=== PATIENT | male | born 1965 | race Caucasian/White ===

== ENCOUNTER 2017-12-17 20:22 | Emergency (ER) | payer OTHER ==
[2017-12-17] MEDS: ASPIRIN 81 MG CHEW TABLET PO (20:45)
[2017-12-17 20:54] LABS: HEMATOCRIT 43.5 % (42.0-52.0); HEMOGLOBIN 14.6 g/dl (14.0-18.0); MEAN CORPUSCULAR HEMOGLOBIN 29.3 pg (27.0-33.0); MEAN CORPUSCULAR HGB CONC 33.6 g/dl (32.0-36.5); MEAN CORPUSCULAR VOLUME 87.3 fl (80.0-96.0); PLATELET COUNT, AUTOMATED 567 10^3/uL (150-450); RED BLOOD COUNT 4.98 10^6/uL (4.30-6.10); RED CELL DISTRIBUTION WIDTH 14.4 % (11.5-14.5); WHITE BLOOD COUNT 16.9 10^3/uL (4.0-10.0)
[2017-12-17 20:57] LABS: ADD MANUAL DIFFER YES; DIFF SLIDE NUMBER 154; POSITIVE DIFF POS FLAG
[2017-12-17] MEDS: IPRATROPIUM 0.5MG/ALBUTEROL 2.5MG INH SOL UD 3ML (DUONEB)(J7620) NEB ×3 (21:06)
[2017-12-17 21:08] LABS: VENOUS BASE EXCESS -1.3 (-2.0-2.0); VENOUS HCO3 23.4 MEQ/L (23.0-27.0); VENOUS O2 SATURATION 96.9 % (60.0-80.0); VENOUS PARTIAL PRESSURE CO2 39.3 mmHg (38.0-50.0); VENOUS PARTIAL PRESSURE O2 90.8 mmHg (30.0-50.0); VENOUS PH 7.393 UNITS (7.330-7.430); VENOUS STANDARD HCO3 23.4 MEQ/L; VENOUS TOTAL CO2 24.6 MEQ/L (24.0-28.0)
[2017-12-17 21:21] LABS: INR 0.95; PROTHROMBIN TIME 12.8 SECONDS (12.4-14.5)
[2017-12-17 21:24] LABS: BASOPHILS 1 % (0-4); EOSINOPHILS 2 % (0-5); LYMPHOCYTES 25 % (16-52); MONOCYTES 8 % (0-8); NEUTROPHILS 64 % (35-75); PLATELET ESTIMATE INCREASED (NORMAL)
[2017-12-17 21:35] LABS: ALBUMIN 3.5 GM/DL (3.2-5.2); ALBUMIN/GLOBULIN RATIO 0.95 (1.00-1.93); ALKALINE PHOSPHATASE 67 U/L (45-117); ALT/SGPT 33 U/L (12-78); ANION GAP 6 MEQ/L (8-16); AST/SGOT 12 U/L (7-37); BILIRUBIN,DIRECT < 0.1 MG/DL (0.0-0.2); BILIRUBIN,TOTAL 0.2 MG/DL (0.2-1.0); BLOOD UREA NITROGEN 18 MG/DL (7-18); CALCIUM LEVEL 9.2 MG/DL (8.5-10.1); CARBON DIOXIDE LEVEL 26 MEQ/L (21-32); CHLORIDE LEVEL 108 MEQ/L (98-107); CPK CREATINE PHOSPHOKINASE 113 U/L (39-308); CREATININE FOR GFR 0.76 MG/DL (0.70-1.30); GLOMERULAR FILTRATION RATE > 60.0 (>56); GLUCOSE, FASTING 120 MG/DL (70-100); MB/CK RELATIVE INDEX 0.88 (< OR =4); NT-PRO BNP 9 PG/ML (<125); POTASSIUM SERUM 4.1 MEQ/L (3.5-5.1); SODIUM LEVEL 140 MEQ/L (136-145); TOTAL PROTEIN 7.2 GM/DL (6.4-8.2); TROPONIN I < 0.02 NG/ML (< 0.10)
[2017-12-17] MEDS: MOXIFLOXACIN 400 MG TAB PO (22:11)
[2017-12-17] MEDS: ALBUTEROL 90 MCG/ACT 8GM HFA INHALER INH (22:11)
== END 2017-12-17 22:19 | disposition home or self-care (01) ==
LOC: M ED 20:22
DX: J84.9 Interstitial pulmonary disease, unspecified (principal); Z86.73 Personal history of transient ischemic attack (TIA), and cerebral infarction without residual deficits; Z79.899 Other long term (current) drug therapy; Z79.02 Long term (current) use of antithrombotics/antiplatelets
CPT/HCPCS: 71046

== ENCOUNTER → 2018-01-22 | Outpatient (REF) | payer OTHER ==
[2018-01-22 13:32] LABS: BASO # 0.1 10^3/uL (0.0-0.2); BASO % 0.8 % (0.0-1.0); EOS # 0.2 10^3/uL (0.0-0.50); EOS % 1.5 % (0.0-3.0); HEMOGLOBIN 14.4 g/dl (14.0-18.0); IMMATURE GRANULOCYTE % 0.9 % (0-3.0); LYMPH # 3.8 10^3/uL (1.5-4.5); LYMPH % 27.9 % (24.0-44.0); MEAN CORPUSCULAR HEMOGLOBIN 29.4 pg (27.0-33.0); MEAN CORPUSCULAR HGB CONC 32.7 g/dl (32.0-36.5); MEAN CORPUSCULAR VOLUME 89.8 fl (80.0-96.0); MONO # 1.3 10^3/uL (0.0-0.8); MONO % 9.7 % (0.0-5.0); NEUTROPHILS % 59.2 % (36.0-66.0); PLATELET COUNT, AUTOMATED 554 10^3/uL (150-450); WHITE BLOOD COUNT 13.5 10^3/uL (4.0-10.0)
[2018-01-22 13:45] LABS: ALBUMIN 3.8 GM/DL (3.2-5.2); ALKALINE PHOSPHATASE 77 U/L (45-117); ALT/SGPT 34 U/L (12-78); ANION GAP 7 MEQ/L (8-16); AST/SGOT 14 U/L (7-37); BILIRUBIN,TOTAL 0.6 MG/DL (0.2-1.0); BLOOD UREA NITROGEN 17 MG/DL (7-18); CALCIUM LEVEL 9.5 MG/DL (8.5-10.1); CARBON DIOXIDE LEVEL 28 MEQ/L (21-32); CHLORIDE LEVEL 106 MEQ/L (98-107); CHOLESTEROL LEVEL 131 MG/DL (<200); CHOLESTEROL RISK RATIO 3.852 (<5); CREATININE FOR GFR 0.75 MG/DL (0.70-1.30); GLOMERULAR FILTRATION RATE > 60.0 (>56); GLUCOSE, FASTING 92 MG/DL (70-100); HDL CHOLESTEROL 34 MG/DL (>40); LDL CHOLESTEROL 82.6 MG/DL (<100); NON-HDL-C 97 MG/DL; POTASSIUM SERUM 4.5 MEQ/L (3.5-5.1); SODIUM LEVEL 141 MEQ/L (136-145); TOTAL PROTEIN 7.6 GM/DL (6.4-8.2); TRIGLYCERIDES LEVEL 72 MG/DL (<150)
== END ==
LOC: M LABDRWAD 12:54
DX: I69.339 Monoplegia of upper limb following cerebral infarction affecting unspecified side (principal); I10 Essential (primary) hypertension

== ENCOUNTER → 2018-02-13 | Outpatient (REF) | payer OTHER ==
[2018-02-13 12:27] LABS: BASO # 0.1 10^3/uL (0.0-0.2); BASO % 0.7 % (0.0-1.0); EOS # 0.2 10^3/uL (0.0-0.50); EOS % 1.2 % (0.0-3.0); HEMATOCRIT 42.3 % (42.0-52.0); HEMOGLOBIN 13.8 g/dl (13.5-17.5); IMMATURE GRANULOCYTE % 0.8 % (0-3.0); LYMPH # 3.6 10^3/uL (1.5-4.5); LYMPH % 22.1 % (24.0-44.0); MEAN CORPUSCULAR HEMOGLOBIN 29.4 pg (27.0-33.0); MEAN CORPUSCULAR HGB CONC 32.6 g/dl (32.0-36.5); MONO # 1.8 10^3/uL (0.0-0.8); MONO % 11.3 % (0.0-5.0); NEUTROPHILS # 10.4 10^3/uL (1.8-7.7); NEUTROPHILS % 63.9 % (36.0-66.0); PLATELET COUNT, AUTOMATED 607 10^3/uL (150-450); RED CELL DISTRIBUTION WIDTH 14.9 % (11.5-14.5); WHITE BLOOD COUNT 16.3 10^3/uL (4.0-10.0)
== END ==
LOC: M SFHCADAM 12:17
DX: R79.89 Other specified abnormal findings of blood chemistry (principal)

== ENCOUNTER → 2018-02-15 | Outpatient (REF) | payer OTHER ==
[2018-02-15 20:17] LABS: HEMATOCRIT 43.2 % (42.0-52.0); HEMOGLOBIN 14.2 g/dl (13.5-17.5); MEAN CORPUSCULAR HEMOGLOBIN 29.4 pg (27.0-33.0); MEAN CORPUSCULAR HGB CONC 32.9 g/dl (32.0-36.5); MEAN CORPUSCULAR VOLUME 89.4 fl (80.0-96.0); PLATELET COUNT, AUTOMATED 622 10^3/uL (150-450); RED BLOOD COUNT 4.83 10^6/uL (4.30-6.10); RED CELL DISTRIBUTION WIDTH 14.8 % (11.5-14.5); WHITE BLOOD COUNT 17.6 10^3/uL (4.0-10.0)
[2018-02-15 20:28] LABS: ADD MANUAL DIFFER YES; DIFF SLIDE NUMBER 321; POSITIVE DIFF POS FLAG
[2018-02-15 20:29] LABS: REASON FOR REVIEW OTHER; SLIDE REVIEW Report; SOURCE PERIPHERAL SMEAR
[2018-02-15 21:06] LABS: BASOPHILS 1 % (0-4); EOSINOPHILS 1 % (0-5); LYMPHOCYTES 28 % (16-52); MONOCYTES 5 % (0-8); NEUTROPHILS 65 % (35-75); PLATELET ESTIMATE INCREASED (NORMAL)
== END ==
LOC: M SFHCADAM 17:09
DX: R79.89 Other specified abnormal findings of blood chemistry (principal)

== ENCOUNTER → 2018-03-28 | Outpatient (REF) | payer OTHER ==
[2018-03-28 17:20] LABS: FERRITIN 161 NG/ML (26-388); IRON (FE) 49 UG/DL (65-175); PERCENT SATURATION 14.8 % (19.7-50.0); TOTAL IRON BINDING CAPACITY 331 UG/DL (250-450)
[2018-03-30 14:16] LABS: ANTINUCLEAR ANTIBODIES DIRECT Negative (Negative)
== END ==
LOC: M LAB REF 16:19
DX: D47.1 Chronic myeloproliferative disease (principal); D72.829 Elevated white blood cell count, unspecified
CPT/HCPCS: 83550

== ENCOUNTER → 2018-04-11 | Outpatient (REF) | payer OTHER | LOC: M LAB REF 12:48 | DX: D72.829 Elevated white blood cell count, unspecified (principal) | CPT/HCPCS: 88300 ==

== ENCOUNTER → 2018-07-06 | Outpatient (CLI) | payer OTHER | LOC: M ADAMS 14:32 | DX: M25.561 Pain in right knee (principal) | CPT/HCPCS: 73564 ==

== ENCOUNTER 2018-11-09 14:20 | Emergency (ER) | payer OTHER ==
[~2018-11-09 14:20] MED LIST: ATOR1TAB19 PO; AVEL1TAB3 PO; LISI-538 PO; PLAV1TAB2 PO
--- NOTE | 2018-11-09 14:55 | REP ---
CHEST X-RAY: Single view. HISTORY: Chest pain. COMPARISON STUDY: December 17, 2017. FINDINGS: EKG monitoring electrodes overlie the chest. Lungs are well inflated and clear. The pleural angles are sharp. Heart size is normal. Pulmonary vasculature is not increased. No significant bony abnormality is seen. There are old healed rib fractures on the left. IMPRESSION: No active disease. Electronically Signed by Clint Bill MD 11/09/2018 04:17 P
[2018-11-09 15:09] LABS: BASO # 0.1 10^3/uL (0.0-0.2); BASO % 0.7 % (0.0-1.0); EOS # 0.2 10^3/uL (0.0-0.50); EOS % 1.1 % (0.0-3.0); HEMATOCRIT 41.7 % (42.0-52.0); LYMPH # 3.9 10^3/uL (1.5-4.5); LYMPH % 22.5 % (24.0-44.0); MEAN CORPUSCULAR HEMOGLOBIN 29.4 pg (27.0-33.0); MEAN CORPUSCULAR HGB CONC 33.6 g/dl (32.0-36.5); MEAN CORPUSCULAR VOLUME 87.4 fl (80.0-96.0); MONO # 1.8 10^3/uL (0.0-0.8); MONO % 10.7 % (0.0-5.0); NEUTROPHILS # 10.9 10^3/uL (1.8-7.7); NEUTROPHILS % 63.9 % (36.0-66.0); PLATELET COUNT, AUTOMATED 584 10^3/uL (150-450); RED BLOOD COUNT 4.77 10^6/uL (4.30-6.10); WHITE BLOOD COUNT 17.1 10^3/uL (4.0-10.0)
[2018-11-09 15:19] LABS: INR 1.02; PROTHROMBIN TIME 13.5 SECONDS (12.1-14.4)
[2018-11-09 15:40] LABS: ALBUMIN 3.7 GM/DL (3.2-5.2); ALT/SGPT 30 U/L (12-78); BILIRUBIN,DIRECT < 0.1 MG/DL (0.0-0.2); BILIRUBIN,TOTAL 0.3 MG/DL (0.2-1.0); BLOOD UREA NITROGEN 14 MG/DL (7-18); CALCIUM LEVEL 9.4 MG/DL (8.5-10.1); CARBON DIOXIDE LEVEL 24 MEQ/L (21-32); CHLORIDE LEVEL 107 MEQ/L (98-107); CPK CREATINE PHOSPHOKINASE 119 U/L (39-308); GLOMERULAR FILTRATION RATE > 60.0 (>56); GLUCOSE, FASTING 92 MG/DL (70-100); LIPASE 110 U/L (73-393); MB/CK RELATIVE INDEX 1.09 (< OR =4); NT-PRO BNP 10 PG/ML (<125); POTASSIUM SERUM 4.2 MEQ/L (3.5-5.1); SODIUM LEVEL 139 MEQ/L (136-145); TOTAL PROTEIN 7.5 GM/DL (6.4-8.2); TROPONIN I < 0.02 NG/ML (< 0.10)
[2018-11-09] MEDS ORDERED: ISOVUE-370 76% 100ML VIAL (Q9967) As Ordered ONE (17:01)
--- NOTE | 2018-11-09 17:30 | REP ---
Clinical: Acute pleuritic chest pain. Technique: Axial contrast enhanced images from the thoracic inlet to the upper abdomen using 100 ml Isovue 370 intravenous contrast material with coronal and sagittal re-formations. Findings: Satisfactory enhancement of the pulmonary vasculature is achieved and no filling defects are identified to suggest pulmonary embolus. Thoracic aorta is normal caliber without aneurysm or dissection. Heart and pericardium are normal. Bilateral lung kang are well aerated and clear without acute pulmonary parenchymal consolidation or atelectasis. No nodule or mass lesion. No pleural effusion/reaction. No pneumothorax. No adenopathy. Impression: No evidence for pulmonary embolus. No acute pleuroparenchymal or mediastinal process. Electronically Signed by Jonathan Nguyen MD 11/09/2018 05:21 P
--- NOTE | 2018-11-09 18:43 | ECGEPIP ---
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
[2018-11-09 19:53] LABS: CPK CREATINE PHOSPHOKINASE 126 U/L (39-308); MB/CK RELATIVE INDEX 0.87 (< OR =4); TROPONIN I < 0.02 NG/ML (< 0.10)
[2018-11-09 20:17] VITALS: BP 134/72
--- NOTE | 2018-11-10 07:30 | ECGEPIP ---
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
== END 2018-11-09 20:31 | disposition home or self-care (01) ==
LOC: EDBD 14:20 → M ED 14:20
DX: R07.89 Other chest pain (principal); R06.02 Shortness of breath; I10 Essential (primary) hypertension; E78.5 Hyperlipidemia, unspecified; Z86.73 Personal history of transient ischemic attack (TIA), and cerebral infarction without residual deficits; Z79.899 Other long term (current) drug therapy; Z79.02 Long term (current) use of antithrombotics/antiplatelets; Z87.891 Personal history of nicotine dependence
CPT/HCPCS: 36415; 71045; 71275; 80048; 80076; 82550; 82553; 83690; 83880; 84443; 85025; 85610; 93005; 93041; 94760; 99285; Q9967

== ENCOUNTER 2019-02-13 05:50 | Emergency (ER) | payer OTHER ==
[~2019-02-13] VITALS: Ht 185.4 cm; Wt 134.0 kg
--- NOTE | 2019-02-13 06:29 | REPVR ---
EXAM: CT Head Without Contrast EXAM DATE/TIME: 02/13/2019 5:58 AM CLINICAL HISTORY: 53 years old, male; Injury or trauma; Fall; Additional info: Head injury/on Plavix TECHNIQUE: Imaging protocol: Axial computed tomography images of the head/brain without contrast. Radiation optimization: All CT scans at this facility use at least one of these dose optimization techniques: automated exposure control; mA and/or kV adjustment per patient size (includes targeted exams where dose is matched to clinical indication); or iterative reconstruction. COMPARISON: CT Head without contrast 01/22/2014 10:58 AM The report from this study was not available for review at the time of this interpretation. FINDINGS: Brain: There is no evidence for an acute large vessel territorial infarct, intracranial hemorrhage, mass, mass effect, or herniation. The cortical gyration pattern, basal ganglia, thalami, and cerebellum are normal in appearance. Brainstem: Unremarkable. Midline shift: There is no midline shift. Ventricles: The ventricles are moderately dilated in proportion to the sulci, which is compatible with moderate generalized cerebral volume loss that is similar in appearance compared to the prior CT scan on 01/22/2014. Bones/joints: Unremarkable. No acute fracture. Sinuses: Visualized sinuses are unremarkable. No acute sinusitis. Mastoid air cells: Visualized mastoid air cells are unremarkable. No mastoid effusion. Soft tissues: Unremarkable. IMPRESSION: No CT evidence for an acute intracranial process. Electronically signed by: Doug Garcia On 02/13/2019 06:28:58 AM
--- NOTE | 2019-02-13 06:32 | REPVR ---
EXAM: CT Cervical Spine Without Contrast EXAM DATE/TIME: 02/13/2019 5:58 AM CLINICAL HISTORY: 53 years old, male; Injury or trauma; Fall; Initial encounter; Concussion /head injury; Additional info: Head injury/on plavix TECHNIQUE: Imaging protocol: Axial computed tomography images of the cervical spine without intravenous contrast. Coronal and sagittal reformatted images were created and reviewed. Radiation optimization: All CT scans at this facility use at least one of these dose optimization techniques: automated exposure control; mA and/or kV adjustment per patient size (includes targeted exams where dose is matched to clinical indication); or iterative reconstruction. COMPARISON: No relevant prior studies available. FINDINGS: Limitations: Motion artifact degrades the image quality. Vertebrae: There is straightening of the normal cervical lordosis. The atlantooccipital alignment is normal. The atlantoaxial alignment is normal. There is no fracture or subluxation. The vertebral body heights are preserved. There is no cervical rib. No suspicious osteolytic or osteoblastic lesion is noted. C2-C3: The disc height is preserved. There is a small central protrusion. No spinal canal stenosis or neural foraminal stenosis is noted. The facet joints are normal. C3-C4: The disc height is preserved. No disc herniation, spinal canal stenosis, or neural foraminal stenosis is noted. There is moderate osteoarthritis of the left facet joint. C4-C5: The disc height is preserved. No disc herniation, spinal canal stenosis, or neural foraminal stenosis is identified. The facet joints are normal. C5-C6: The disc height is preserved. No disc herniation, spinal canal stenosis, or neural foraminal stenosis is identified. The facet joints are normal. C6-C7: The disc height is preserved. No disc herniation, spinal canal stenosis, or neural foraminal stenosis is identified. The facet joints are normal. C7-T1: The disc height is preserved. No disc herniation, spinal canal stenosis, or neural foraminal stenosis is identified. The facet joints are normal. T1-T2: The disc height is preserved. No disc herniation, spinal canal stenosis, or neural foraminal stenosis is identified. The facet joints are normal. Soft tissues: Unremarkable. No soft tissue fluid collection is noted. Dental: Dental caries and periapical abscesses are noted involving several of the imaged teeth. The teeth were not fully imaged. Prevertebral Space: No prevertebral soft tissue swelling is noted. Lungs: The imaged lung apices are clear. IMPRESSION: 1. Straightening of the normal cervical lordosis, but no fracture or subluxation in the cervical spine. 2. Mild degenerative changes in the cervical spine. 3. Several dental carries and periapical abscesses. Electronically signed by: Doug Garcia On 02/13/2019 06:32:20 AM
[2019-02-13] MEDS ORDERED: ACETAMINOPHEN TAB 650MG DOSE (2X325MG) PO ONE (06:45)
[2019-02-13 07:12] VITALS: BP 138/81
--- NOTE | 2019-02-13 07:54 | REP ---
Left shoulder series: Three views. History: Pain after fall. Findings: The left glenohumeral and acromioclavicular joints are normally aligned. Periarticular soft tissues are unremarkable. No evidence of fracture or subluxation. Impression: Negative radiographs of the left shoulder. Electronically Signed by Clint Bill MD 02/13/2019 07:45 A
== END 2019-02-13 07:13 | disposition home or self-care (01) ==
LOC: M ED 05:50
DX: S09.90XA Unspecified injury of head, initial encounter (principal); S43.402A Unspecified sprain of left shoulder joint, initial encounter; W07.XXXA Fall from chair, initial encounter; Y92.009 Unspecified place in unspecified non-institutional (private) residence as the place of occurrence of the external cause; I10 Essential (primary) hypertension; E78.00 Pure hypercholesterolemia, unspecified; Z79.01 Long term (current) use of anticoagulants; Z79.899 Other long term (current) drug therapy; Z86.73 Personal history of transient ischemic attack (TIA), and cerebral infarction without residual deficits

== ENCOUNTER 2019-02-15 13:51 | Observation (INO) | payer OTHER ==
[~2019-02-15] VITALS: Ht 172.7 cm; Wt 90.9 kg
[2019-02-15] MEDS ORDERED: NS 1,000 ML IV SCH (14:14)
[2019-02-15] MEDS ORDERED: ASPIRIN 81 MG CHEW TABLET PO ONE (14:15)
[2019-02-15] MEDS ORDERED: IPRATROPIUM 0.5MG/ALBUTEROL 2.5MG INH SOL UD 3ML (DUONEB)(J7620) NEB ONE (14:15)
[2019-02-15 14:31] LABS: BASO # 0.1 10^3/uL (0.0-0.2); BASO % 0.3 % (0.0-1.0); HEMATOCRIT 47.1 % (42.0-52.0); LYMPH # 0.5 10^3/uL (1.5-4.5); LYMPH % 1.8 % (24.0-44.0); MEAN CORPUSCULAR HEMOGLOBIN 29.7 pg (27.0-33.0); MEAN CORPUSCULAR VOLUME 87.4 fl (80.0-96.0); MONO # 1.7 10^3/uL (0.0-0.8); MONO % 6.5 % (0.0-5.0); NEUTROPHILS # 23.7 10^3/uL (1.8-7.7); NEUTROPHILS % 90.2 % (36.0-66.0); PLATELET COUNT, AUTOMATED 622 10^3/uL (150-450); RED BLOOD COUNT 5.39 10^6/uL (4.30-6.10); WHITE BLOOD COUNT 26.2 10^3/uL (4.0-10.0)
--- NOTE | 2019-02-15 14:40 | REP ---
Clinical: Cough and dyspnea . Comparison: 11/09/2018 O . Technique: PA and lateral. Findings: The mediastinum and cardiac silhouette are normal. The lung kang are clear and without acute consolidation, effusion, or pneumothorax. The skeletal structures are intact and normal. Impression: 1. No acute cardiopulmonary process. Electronically Signed by Jonathan Nguyen MD 02/15/2019 02:32 P
[2019-02-15 14:41] LABS: INR 1.04; PROTHROMBIN TIME 13.7 SECONDS (12.1-14.4)
[2019-02-15 14:57] LABS: INFLUENZA A AMPLIFICATION NEGATIVE (NEGATIVE); INFLUENZA B AMPLIFICATION NEGATIVE (NEGATIVE)
[2019-02-15 15:02] LABS: BLOOD UREA NITROGEN 41 MG/DL (7-18); CALCIUM LEVEL 8.3 MG/DL (8.5-10.1); CARBON DIOXIDE LEVEL 23 MEQ/L (21-32); CHLORIDE LEVEL 105 MEQ/L (98-107); CK-MB VALUE MASS < 1.0 NG/ML (<3.6); CPK CREATINE PHOSPHOKINASE 92 U/L (39-308); CREATININE FOR GFR 1.32 MG/DL (0.70-1.30); GLOMERULAR FILTRATION RATE > 60.0 (>56); GLUCOSE, FASTING 115 MG/DL (70-100); MB/CK RELATIVE INDEX 1.09 (< OR =4); NT-PRO BNP 53 PG/ML (<125); POTASSIUM SERUM 4.4 MEQ/L (3.5-5.1); SODIUM LEVEL 136 MEQ/L (136-145); TROPONIN I < 0.02 NG/ML (< 0.10)
[2019-02-15] MEDS ORDERED: ISOVUE-370 76% 100ML VIAL (Q9967) As Ordered ONE (15:32)
--- NOTE | 2019-02-15 16:02 | REP ---
Clinical: Transverse and tachycardia. Technique: Axial contrast enhanced images from the thoracic inlet to the upper abdomen using 100 ml Isovue 370 intravenous contrast material with multiplanar re-formations. Findings: Suboptimal enhancement of the pulmonary vasculature may be secondary to technical factors, but no obvious pulmonary embolus in the first order pulmonary arteries are identified. The thoracic aorta is normal. The heart and pericardium are normal. The bilateral lung kang demonstrate minimal posterior basilar dependent changes without consolidation or effusion. No pneumothorax. Tracheobronchial tree is patent. No significant adenopathy. Musculoskeletal structures are intact. Impression: No obvious pulmonary embolus. No acute mediastinal or pleuroparenchymal process appreciated. Electronically Signed by Jonathan Nguyen MD 02/15/2019 03:54 P
[2019-02-15] MEDS ORDERED: IBUP200T45 PO (16:39)
[2019-02-15] MEDS ORDERED: MORPHINE 4 MG/ML 1ML VIAL/SYRINGE (J2270) IV ONE (17:15)
--- NOTE | 2019-02-15 17:36 | HPEPDOC ---
General Date of Admission Feb 15, 2019 at 17:07 Chief Complaint The patient is a 53-year-old male admitted with a reason for visit of Milagro duran. 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 The patient states that 2 days ago he was about to sit down on a rolling chair when it slipped from underneath him and he fell backwards and landed on his left shoulder/chest area. He was evaluated in the ER, and was sent home after imaging was noted to be negative. Since then, the patient has been complaining of chest pain on the left side of the chest wall which is reproducible on palpation. He denies any fevers, chills, shortness of breath, palpitations, abdominal pain, or any nausea/vomiting. Also of note, the patient does endorse having 3 episodes of diarrhea this morning. He denies any recent travel, sick contacts, or ingestion of any foreign foods. In the ER, the patient was noted to have an an elevated white blood cell count above his baseline, and an acute kidney injury. He will be admitted under the spitalist service for IV fluid hydration, and monitoring on telemetry with serial troponin marker cycling. Home Medications Scheduled Atorvastatin Calcium (Atorvastatin Calcium) 10 Mg Tab, 10 MG PO DAILY, (Reported) Clopidogrel Bisulfate (Plavix) 75 Mg Tab, 75 MG PO DAILY, (Reported) Lisinopril (Lisinopril) 20 Mg Tab, 20 MG PO DAILY, (Reported) Scheduled PRN Ibuprofen (Ibu-200) 200 Mg Tab, 200 MG PO Q6H PRN for PAIN, (Reported) Allergies Coded Allergies: No Known Allergies (Unverified , 02/13/19) Past Medical History Medical History As noted in HPI. Surgical History History of splenectomy, appendectomy Social History * Smoker: Denies Alcohol: Denies Drugs: denies Review of Systems Other systems 10 point review of systems negative unless otherwise specified in HPI. Physical Examination General Exam: Positive: Alert, Cooperative, Mild Distress (2/2 chest pain which is reproducible in nature), Other (patient noted to be disheveled appearing with poor hygiene) ENT Exam: Positive: Atraumatic, Mucous membr. moist/pink Neck Exam: Negative: JVD Chest Exam: Positive: Clear to auscultation, Normal air movement, Other (left chest wall pain elicited upon palpation) Heart Exam: Positive: Tachycardic, Normal S1, Normal S2 Telemetry: Positive: Sinus, Tachycardia Abdomen Exam: Positive: Soft; Negative: Tenderness Extremity Exam: Negative: Tenderness, Swelling Psych Exam: Positive: Oriented x 3 Vital Signs Vital Signs Date Time Temp Pulse Resp B/P (MAP) Pulse Ox O2 Delivery O2 Flow Rate FiO2 02/15/19 16:30 111/61 (78) 02/15/19 16:21 107 02/15/19 15:00 96 02/15/19 14:04 Room Air 02/15/19 14:00 97.8 22 Laboratory Data Labs 24H Laboratory Tests 2 02/15/19 14:18: Immature Granulocyte % (Auto) 1.2, White Blood Count 26.2H, Red Blood Count 5.39, Hemoglobin 16.0, Hematocrit 47.1, Mean Corpuscular Volume 87.4, Mean Corpuscular Hemoglobin 29.7, Mean Corpuscular Hemoglobin Concent 34.0, Red Cell Distribution Width 14.7H, Platelet Count 622H, Neutrophils (%) (Auto) 90.2H, Lymphocytes (%) (Auto) 1.8L, Monocytes (%) (Auto) 6.5H, Eosinophils (%) (Auto) 0.0, Basophils (%) (Auto) 0.3, Neutrophils # (Auto) 23.7H, Lymphocytes # (Auto) 0.5L, Monocytes # (Auto) 1.7H, Eosinophils # (Auto) 0.0, Basophils # (Auto) 0.1, Nucleated Red Blood Cells % (auto) 0.0, Prothrombin Time 13.7, Prothromb Time International Ratio 1.04, Anion Gap 8, Glomerular Filtration Rate > 60.0, Blood Urea Nitrogen 41H, Creatinine 1.32H, Sodium Level 136, Potassium Level 4.4, Chloride Level 105, Carbon Dioxide Level 23, Calcium Level 8.3L, Total Creatine Kinase 92, Creatine Kinase MB < 1.0, Creatine Kinase MB Relative Index 1.09, Troponin I < 0.02, [id number] Natriuretic Peptide 53, Influenza Type A (RT- PCR) NEGATIVE, Influenza Type B (RT-PCR) NEGATIVE 02/15/19 16:56: CBC/BMP Laboratory Tests 02/15/19 14:18 Red Blood Count 5.39, Mean Corpuscular Volume 87.4, Mean Corpuscular Hemoglobin 29.7, Mean Corpuscular Hemoglobin Concent 34.0, Red Cell Distribution Width 14.7 H, Neutrophils (%) (Auto) 90.2 H, Lymphocytes (%) (Auto) 1.8 L, Monocytes (%) (Auto) 6.5 H, Eosinophils (%) (Auto) 0.0, Basophils (%) (Auto) 0.3, Neutrophils # (Auto) 23.7 H, Lymphocytes # (Auto) 0.5 L, Monocytes # (Auto) 1.7 H, Eosinophils # (Auto) 0.0, Basophils # (Auto) 0.1, Calcium Level 8.3 L, Total Creatine Kinase 92 Microbiology Microbiology 02/15/19 Blood Culture, Received Pending Plan / VTE VTE Prophylaxis Ordered?: Yes Plan Plan Acute Kidney Injury likely 2/2 Diarrhea, with concomitant CORBY-I and NSAID use We will order IVF hydration Hold Nephrotoxins Monitor BMP in the AM Chest Pain likely MSK in Etiology and secondary to recent fall Chest pain is reproducible on palpation of the chest wall EKG with no acute ST changes Initial Troponin marker negative--we will serially trend Of note the patient had a cardiac cath in February 2017 after a Cardiac PET scan in January 2017 revealed possible abnormal perfusion--the Cardiac Cath apparently showed normal left ventricular systolic function and normal coronary arteries as per records CTA Chest negative for PE Leukocytosis and Thrombocytosis 2/2 underlying Asplenic Reactive Process His WBC has been noted to be between 13-18K since Dec 2017--this was evaluated by hematology/oncology as an outpatient and workup including a bone marrow biopsy, flow cytometry revealed that this was likely secondary to a reactive process due to asplenia with no evidence of underlying leukemia or lymphoma However, given the patient's elevation of WBC above his baseline this may be attributed to underlying dehydration due to possible viral gastroenteritis GI panel, blood culture set ordered We will continue to monitor CBC History of CVA with Residual LUE Weakness Cont Plavix, Statin Hypertension, stable Lisinopril will be held secondary to CHETAN Dyslipidemia Continue statin DVT prophylaxis Heparin SC This patient will be admitted under the service of [facility], and will be signed out to Dr. Obando who is the covering physician public information relations manager this evening. AMANDEEP KING MD Feb 15, 2019 17:36
[2019-02-15 17:38] LABS: CK-MB VALUE MASS < 1.0 NG/ML (<3.6); CPK CREATINE PHOSPHOKINASE 89 U/L (39-308); MB/CK RELATIVE INDEX 1.12 (< OR =4); TROPONIN I < 0.02 NG/ML (< 0.10)
[2019-02-15 18:52] VITALS: BP 126/66
--- NOTE | 2019-02-15 21:13 | ECGEPIP ---
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
[2019-02-15 22:00] VITALS: BP 119/53
[2019-02-15] MEDS: HEPARIN SOD (PORCINE) 5000 UNITS/ML VIAL SC SCH (22:00)
[2019-02-15 22:53] LABS: CPK CREATINE PHOSPHOKINASE 164 U/L (39-308); MB/CK RELATIVE INDEX 1.77 (< OR =4); TROPONIN I < 0.02 NG/ML (< 0.10)
[2019-02-16] MEDS: HEPARIN SOD (PORCINE) 5000 UNITS/ML VIAL SC SCH ×3 (05:33→22:02)
[2019-02-16 06:00] VITALS: BP 123/61
[2019-02-16 06:11] LABS: BASO # 0.1 10^3/uL (0.0-0.2); BASO % 0.3 % (0.0-1.0); EOS % 0.1 % (0.0-3.0); HEMATOCRIT 40.9 % (42.0-52.0); LYMPH # 2.1 10^3/uL (1.5-4.5); LYMPH % 10.6 % (24.0-44.0); MEAN CORPUSCULAR HEMOGLOBIN 29.3 pg (27.0-33.0); MEAN CORPUSCULAR HGB CONC 33.5 g/dl (32.0-36.5); MEAN CORPUSCULAR VOLUME 87.6 fl (80.0-96.0); MONO # 1.7 10^3/uL (0.0-0.8); MONO % 8.5 % (0.0-5.0); NEUTROPHILS # 15.7 10^3/uL (1.8-7.7); NEUTROPHILS % 79.4 % (36.0-66.0); PLATELET COUNT, AUTOMATED 553 10^3/uL (150-450); RED BLOOD COUNT 4.67 10^6/uL (4.30-6.10); WHITE BLOOD COUNT 19.8 10^3/uL (4.0-10.0)
[2019-02-16 06:20] LABS: HEMOGLOBIN 13.7 g/dl (13.5-17.5)
[2019-02-16 06:39] LABS: ALBUMIN 3.1 GM/DL (3.2-5.2); ALT/SGPT 39 U/L (12-78); BILIRUBIN,TOTAL 0.3 MG/DL (0.2-1.0); BLOOD UREA NITROGEN 42 MG/DL (7-18); CALCIUM LEVEL 7.7 MG/DL (8.5-10.1); CARBON DIOXIDE LEVEL 24 MEQ/L (21-32); CHLORIDE LEVEL 103 MEQ/L (98-107); CPK CREATINE PHOSPHOKINASE 263 U/L (39-308); CREATININE FOR GFR 1.23 MG/DL (0.70-1.30); GLOMERULAR FILTRATION RATE > 60.0 (>56); GLUCOSE, FASTING 98 MG/DL (70-100); MAGNESIUM LEVEL 1.7 MG/DL (1.8-2.4); POTASSIUM SERUM 3.9 MEQ/L (3.5-5.1); SODIUM LEVEL 133 MEQ/L (136-145); TOTAL PROTEIN 6.7 GM/DL (6.4-8.2); TROPONIN I < 0.02 NG/ML (< 0.10)
[2019-02-16] MEDS: ATORVASTATIN 10 MG TAB PO SCH (07:39)
[2019-02-16] MEDS: CLOPIDOGREL 75 MG TAB PO SCH (07:39)
[2019-02-16 14:00] VITALS: BP 132/64
[2019-02-16 14:25] LABS: CPK CREATINE PHOSPHOKINASE 253 U/L (39-308); MB/CK RELATIVE INDEX 1.26 (< OR =4); TROPONIN I < 0.02 NG/ML (< 0.10)
--- NOTE | 2019-02-16 15:27 | IPNPDOC ---
Subjective Date Seen The patient was seen on 02/16/19. Subjective Chief Complaint/HPI decreased diarrhea, but still 5 documented since admission Constitutional: Denies: Chills Eyes: Denies: Pain ENT: Denies: Head Aches, Ear Pain Skin: Denies: Rash Pulmonary: Denies: Dyspnea, Cough Cardiovascular: Reports: Chest Pain Gastrointestinal: Denies: Nausea, Vomiting Genitourinary: Denies: Dysuria Objective Physical Examination General Exam: Positive: Alert, Cooperative, Mild Distress (2/2 chest pain which is reproducible in nature), Other (patient noted to be disheveled appearing with poor hygiene) ENT Exam: Positive: Atraumatic, Mucous membr. moist/pink Neck Exam: Negative: JVD Chest Exam: Positive: Clear to auscultation, Normal air movement, Other (left chest wall pain elicited upon palpation) Heart Exam: Positive: Tachycardic, Normal S1, Normal S2 Telemetry: Positive: Sinus, Tachycardia Abdomen Exam: Positive: Soft; Negative: Tenderness Extremity Exam: Negative: Tenderness, Swelling Psych Exam: Positive: Oriented x 3 Assessment /Plan Problems (1) Leucocytosis Status: Chronic Response to Treatment: Improving Problem Text: favor 2 Norovirus enteritis 02/16 AF since admission, WBC 19.8 (26.2) c normal differential baseline 16-17K felt [address] Bishop-ROSEMARY 04/26/18 (-JAK2, NPL) 02/16 - RP 02/15 BCX1 P 02/15 UCX P (2) CHETAN (acute kidney injury) Status: Acute Problem Text: favor 2 dehydration 02/16 1.2 (1.3) baseline ~0.8 (3) Enteritis due to Norovirus Status: Acute Response to Treatment: Improving (4) Thrombocytosis Status: Chronic Response to Treatment: Stable Problem Text: at baseline 550-600K (5) Chest pain Permanent Comment: 02/2017 cardiac cath: normal coronaries, systolic function- chronic CP felt non-cardiac by Dr. Rudolph Last Edited By: Chris Lim MD on Feb 16, 2019 15:38 Status: Chronic Response to Treatment: Stable Problem Text: favor MS (eproducible at L 3,4 CCJ) flared 2 vomiting 02/15 2 enteritis 02/16 + Flector patch q12H 02/15/19 CXR, CTA chest NAD 02/15- -serial CIP/T-I x 5 (6) Hypertension Status: Chronic Problem Text: stable off HD lisin 20 QD (7) Asplenia Status: Chronic Problem Text: no s/s of bacterial infection (8) CVA, old, monoplegia upper limb Status: Chronic Response to Treatment: Stable Problem Text: stable on HD clopid, atorva Plan/VTE VTE Prophylaxis Ordered?: Yes VS, I&O, 24H, Fishbone Vital Signs/I&O Vital Signs Date Time Temp Pulse Resp B/P (MAP) Pulse Ox O2 Delivery O2 Flow Rate FiO2 02/16/19 14:00 97.8 84 17 132/64 (86) 95 02/15/19 18:18 Room Air I&O- Last 24 Hours up to 6 AM 02/16/19 06:00 Intake Total 1300 ml Output Total 800 ml Balance 500 ml Laboratory Data 24H LABS Laboratory Tests 2 02/15/19 16:56: Total Creatine Kinase 89, Creatine Kinase MB < 1.0, Creatine Kinase MB Relative Index 1.12, Troponin I < 0.02 02/15/19 20:26: Urine Color YELLOW, Urine Appearance CLOUDYH, Urine pH 5.0, Urine Specific [place] 1.044, Urine Protein 2+H, Urine Glucose (UA) NEGATIVE, Urine Ketones NEGATIVE, Urine Blood NEGATIVE, Urine Nitrite NEGATIVE, Urine Bilirubin 1+H, Urine Urobilinogen 2.0H, Urine Leukocyte Esterase TRACEH, Urine WBC (Auto) 2, U rine RBC (Auto) 2, Urine Hyaline Casts (Auto) 0, Urine Bacteria (Auto) NEGATIVE, Urine Squamous Epithelial Cells 1, Urine Mucus (Auto) SMALL, Urine Sperm (Auto) 02/15/19 20:27: Bedside Glucose (Misc Panel) 131H 02/15/19 22:12: Total Creatine Kinase 164#, Creatine Kinase MB 3.0, Creatine Kinase MB Relative Index 1.77, Troponin I < 0.02 02/16/19 05:46: Immature Granulocyte % (Auto) 1.1, White Blood Count 19.8H, Red Blood Count 4.67, Hemoglobin 13.7#, Hematocrit 40.9L, Mean Corpuscular Volume 87.6, Mean Corpuscular Hemoglobin 29.3, Mean Corpuscular Hemoglobin Concent 33.5, Red Cell Distribution Width 14.7H, Platelet Count 553H, Neutrophils (%) (Auto) 79.4H, Lymphocytes (%) (Auto) 10.6L, Monocytes (%) (Auto) 8.5H, Eosinophils (%) (Auto) 0.1, Basophils (%) (Auto) 0.3, Neutrophils # (Auto) 15.7H, Lymphocytes # (Auto) 2.1, Monocytes # (Auto) 1.7H, Eosinophils # (Auto) 0.0, Basophils # (Auto) 0.1, Nucleated Red Blood Cells % (auto) 0.0, Anion Gap 6L, Glomerular Filtration Rate > 60.0, Blood Urea Nitrogen 42H, Creatinine 1.23, Sodium Level 133L, Potassium Level 3.9, Chloride Level 103, Carbon Dioxide Level 24, Calcium Level 7.7L, A spartate Amino Transf (AST/SGOT) 21, Alanine Aminotransferase (ALT/SGPT) 39, Total Creatine Kinase 263, Alkaline Phosphatase 57, Total Bilirubin 0.3, Total Protein 6.7, Albumin 3.1L, Magnesium Level 1.7L, Creatine Kinase MB 4.0H, Creatine Kinase MB Relative Index 1.60, Troponin I < 0.02, Albumin/Globulin Ratio 0.86L 02/16/19 13:50: Total Creatine Kinase 253, Creatine Kinase MB 3.0, Creatine Kinase MB Relative Index 1.26, Troponin I < 0.02 CBC/BMP Laboratory Tests 02/16/19 05:46 Red Blood Count 4.67, Mean Corpuscular Volume 87.6, Mean Corpuscular Hemoglobin 29.3, Mean Corpuscular Hemoglobin Concent 33.5, Red Cell Distribution Width 14.7 H, Neutrophils (%) (Auto) 79.4 H, Lymphocytes (%) (Auto) 10.6 L, Monocytes (%) (Auto) 8.5 H, Eosinophils (%) (Auto) 0.1, Basophils (%) (Auto) 0.3, Neutrophils # (Auto) 15.7 H, Lymphocytes # (Auto) 2.1, Monocytes # (Auto) 1.7 H, Eosinophils # (Auto) 0.0, Basophils # (Auto) 0.1, Calcium Level 7.7 L, Aspartate Amino Transf (AST/SGOT) 21, Alanine Aminotransferase (ALT/SGPT) 39, Total Creatine Kinase 263, Alkaline Phosphatase 57, Total Bilirubin 0.3, Total Protein 6.7, Albumin 3.1 L Microbiology Microbiology 02/15/19 Blood Culture, Received Pending 02/16/19 Gastrointestinal Tract Panel (PCR) - Final, Complete Norovirus 02/16/19 Respiratory Virus Panel (PCR) (LORETO) - Final, Complete 02/15/19 Urine Culture, Received Pending Chris Lim M.D. Feb 16, 2019 15:27
[2019-02-16] MEDS: DICLOFENAC EPOLAMINE 1.3 % PATCH TOP SCH (18:09)
[2019-02-16 22:00] VITALS: BP 140/72
[2019-02-17] MEDS: HEPARIN SOD (PORCINE) 5000 UNITS/ML VIAL SC SCH ×3 (05:31→22:12)
[2019-02-17] MEDS: DICLOFENAC EPOLAMINE 1.3 % PATCH TOP SCH ×2 (05:44→17:04)
[2019-02-17 06:00] VITALS: BP 145/77
[2019-02-17 06:08] LABS: BASO # 0.1 10^3/uL (0.0-0.2); BASO % 0.3 % (0.0-1.0); EOS # 0.1 10^3/uL (0.0-0.50); EOS % 0.3 % (0.0-3.0); HEMATOCRIT 41.7 % (42.0-52.0); HEMOGLOBIN 13.9 g/dl (13.5-17.5); LYMPH # 3.7 10^3/uL (1.5-4.5); LYMPH % 19.1 % (24.0-44.0); MEAN CORPUSCULAR HEMOGLOBIN 29.1 pg (27.0-33.0); MEAN CORPUSCULAR HGB CONC 33.3 g/dl (32.0-36.5); MEAN CORPUSCULAR VOLUME 87.2 fl (80.0-96.0); MONO % 11.3 % (0.0-5.0); NEUTROPHILS # 13.3 10^3/uL (1.8-7.7); PLATELET COUNT, AUTOMATED 522 10^3/uL (150-450); RED BLOOD COUNT 4.78 10^6/uL (4.30-6.10); WHITE BLOOD COUNT 19.5 10^3/uL (4.0-10.0)
[2019-02-17 06:54] LABS: MONO # 2.2 10^3/uL (0.0-0.8)
[2019-02-17 07:12] LABS: ALBUMIN 3.2 GM/DL (3.2-5.2); ALT/SGPT 46 U/L (12-78); BILIRUBIN,TOTAL 0.3 MG/DL (0.2-1.0); BLOOD UREA NITROGEN 23 MG/DL (7-18); CALCIUM LEVEL 8.3 MG/DL (8.5-10.1); CARBON DIOXIDE LEVEL 23 MEQ/L (21-32); CHLORIDE LEVEL 104 MEQ/L (98-107); CREATININE FOR GFR 0.87 MG/DL (0.70-1.30); GLOMERULAR FILTRATION RATE > 60.0 (>56); GLUCOSE, FASTING 83 MG/DL (70-100); SODIUM LEVEL 135 MEQ/L (136-145); TOTAL PROTEIN 8.2 GM/DL (6.4-8.2)
[2019-02-17] MEDS: CLOPIDOGREL 75 MG TAB PO SCH (07:38)
[2019-02-17] MEDS: ATORVASTATIN 10 MG TAB PO SCH (07:39)
[2019-02-17 14:00] VITALS: BP 127/74
--- NOTE | 2019-02-17 14:29 | IPNPDOC ---
Subjective Date Seen The patient was seen on 02/17/19. Subjective Chief Complaint/HPI decreased abdominal pain/diarrhea and CP Constitutional: Denies: Chills, Fever Eyes: Denies: Pain ENT: Denies: Head Aches Pulmonary: Denies: Dyspnea, Cough Cardiovascular: Reports: Chest Pain Gastrointestinal: Denies: Nausea Genitourinary: Denies: Dysuria Objective Physical Examination General Exam: Positive: Alert, Cooperative, Mild Distress (2/2 chest pain which is reproducible in nature), Other (patient noted to be disheveled appearing with poor hygiene) ENT Exam: Positive: Atraumatic, Mucous membr. moist/pink Neck Exam: Negative: JVD Chest Exam: Positive: Clear to auscultation, Normal air movement, Other (left chest wall pain elicited upon palpation) Heart Exam: Positive: Tachycardic, Normal S1, Normal S2 Telemetry: Positive: Sinus, Tachycardia Abdomen Exam: Positive: Soft; Negative: Tenderness Extremity Exam: Negative: Tenderness, Swelling Psych Exam: Positive: Oriented x 3 Assessment /Plan Problems (1) Leucocytosis Status: Chronic Response to Treatment: Improving Problem Text: favor 2 Norovirus enteritis 02/17 AF since admission, WBC 19.5 (DOA 26.2) c normal differential baseline 16-17K felt [address] Bishop-LV 04/26/18 (-JAK2, NPL) 02/16 - RP 02/15 BCX1 NG 02/15 UCX NGCS / inf A/B (2) CHETAN (acute kidney injury) Status: Acute Problem Text: favor 2 dehydration 02/17 23/0.9 02/16 1.2 (1.3) baseline ~0.8 (3) Enteritis due to Norovirus Status: Acute Response to Treatment: Improving Problem Text: 02/17 persistent, albeit less, diarrhea 02/16 9 Petty 7 BMs (4) Thrombocytosis Status: Chronic Response to Treatment: Stable Problem Text: at baseline 550-600K (5) Chest pain Permanent Comment: 02/2017 cardiac cath: normal coronaries, systolic function- chronic CP felt non-cardiac by Dr. Rudolph Last Edited By: Chris Lim MD on Feb 16, 2019 15:38 Status: Chronic Response to Treatment: Stable Problem Text: favor MS (eproducible at L 3,4 CCJ) flared 2 vomiting 02/15 2 enteritis 4/6 + Flector patch q12H 02/15/19 CXR, CTA chest NAD 02/15- -serial CIP/T-I x 5 (6) Hypertension Status: Chronic Problem Text: stable off HD lisin 20 QD (7) Asplenia Status: Chronic Problem Text: no s/s of bacterial infection (8) CVA, old, monoplegia upper limb Status: Chronic Response to Treatment: Stable Problem Text: stable on HD clopid, atorva Plan/VTE VTE Prophylaxis Ordered?: Yes VS, I&O, 24H, Fishbone Vital Signs/I&O Vital Signs Date Time Temp Pulse Resp B/P (MAP) Pulse Ox O2 Delivery O2 Flow Rate FiO2 02/17/19 14:00 96.6 68 20 127/74 (91) 95 02/15/19 18:18 Room Air I&O- Last 24 Hours up to 6 AM 02/17/19 06:00 Intake Total 1200 ml Output Total 1550 ml Balance -350 ml Laboratory Data 24H LABS Laboratory Tests 2 02/17/19 05:28: Immature Granulocyte % (Auto) 1.0, White Blood Count 19.5H, Red Blood Count 4.78, Hemoglobin 13.9, Hematocrit 41.7L, Mean Corpuscular Volume 87.2, Mean Corpuscular Hemoglobin 29.1, Mean Corpuscular Hemoglobin Concent 33.3, Red Cell Distribution Width 14.4, Platelet Count 522H, Neutrophils (%) (Auto) 68.0H, Lymphocytes (%) (Auto) 19.1L, Monocytes (%) (Auto) 11.3H, Eosinophils (%) (Auto) 0.3, Basophils (%) (Auto) 0.3, Neutrophils # (Auto) 13.3H, Lymphocytes # (Auto) 3.7, Monocytes # (Auto) 2.2H, Eosinophils # (Auto) 0.1, Basophils # (Auto) 0.1, Nucleated Red Blood Cells % (auto) 0.0, Anion Gap 8, Glomerular Filtration Rate > 60.0, Blood Urea Nitrogen 23H, Creatinine 0.87, Sodium Level 135L, Potassium Level 4.0, Chloride Level 104, Carbon Dioxide Level 23, Calcium Level 8.3L, Aspartate Amino Transf (AST/SGOT) 25, Alanine Aminotransferase (ALT/SGPT) 46, Alkaline Phosphatase 100, Total Bilirubin 0.3, Total Protein 8.2#, Albumin 3.2, Albumin/Globulin Ratio 0.64L CBC/BMP Laboratory Tests 02/17/19 05:28 Red Blood Count 4.78, Mean Corpuscular Volume 87.2, Mean Corpuscular Hemoglobin 29.1, Mean Corpuscular Hemoglobin Concent 33.3, Red Cell Distribution Width 14.4, Neutrophils (%) (Auto) 68.0 H, Lymphocytes (%) (Auto) 19.1 L, Monocytes (%) (Auto) 11.3 H, Eosinophils (%) (Auto) 0.3, Basophils (%) (Auto) 0.3, Neutrophils # (Auto) 13.3 H, Lymphocytes # (Auto) 3.7, Monocytes # (Auto) 2.2 H, Eosinophils # (Auto) 0.1, Basophils # (Auto) 0.1, Calcium Level 8.3 L, Aspartate Amino Transf (AST/SGOT) 25, Alanine Aminotransferase (ALT/SGPT) 46, Alkaline Phosphatase 100, Total Bilirubin 0.3, Total Protein 8.2 #, Albumin 3.2 Microbiology Microbiology 02/15/19 Blood Culture - Preliminary, Resulted No growth after 24 hours . All specim... 02/16/19 Gastrointestinal Tract Panel (PCR) - Final, Complete Norovirus 02/16/19 Respiratory Virus Panel (PCR) (LORETO) - Final, Complete 02/15/19 Urine Culture - Final, Complete Chris Lim M.D. Feb 17, 2019 14:29
[2019-02-17 22:00] VITALS: BP 127/74
[2019-02-18] MEDS: DICLOFENAC EPOLAMINE 1.3 % PATCH TOP SCH (05:49)
[2019-02-18] MEDS: HEPARIN SOD (PORCINE) 5000 UNITS/ML VIAL SC SCH (05:49)
[2019-02-18 06:00] VITALS: BP 145/74
[2019-02-18 06:09] LABS: HEMATOCRIT 39.8 % (42.0-52.0); HEMOGLOBIN 13.3 g/dl (13.5-17.5); MEAN CORPUSCULAR HGB CONC 33.4 g/dl (32.0-36.5); MEAN CORPUSCULAR VOLUME 86.7 fl (80.0-96.0); PLATELET COUNT, AUTOMATED 550 10^3/uL (150-450); RED BLOOD COUNT 4.59 10^6/uL (4.30-6.10)
[2019-02-18 06:28] LABS: LYMPHOCYTES 24 % (16-52); MONOCYTES 10 % (0-8); NEUTROPHILS 66 % (35-75); PLATELET ESTIMATE INCREASED (NORMAL)
[2019-02-18 06:34] LABS: ALBUMIN 3.1 GM/DL (3.2-5.2); ALT/SGPT 28 U/L (12-78); BILIRUBIN,TOTAL 0.3 MG/DL (0.2-1.0); BLOOD UREA NITROGEN 16 MG/DL (7-18); CALCIUM LEVEL 8.6 MG/DL (8.5-10.1); CARBON DIOXIDE LEVEL 24 MEQ/L (21-32); CHLORIDE LEVEL 107 MEQ/L (98-107); CREATININE FOR GFR 0.79 MG/DL (0.70-1.30); GLOMERULAR FILTRATION RATE > 60.0 (>56); GLUCOSE, FASTING 83 MG/DL (70-100); POTASSIUM SERUM 3.9 MEQ/L (3.5-5.1); SODIUM LEVEL 138 MEQ/L (136-145); TOTAL PROTEIN 6.9 GM/DL (6.4-8.2)
[2019-02-18 08:28] VITALS: BP 138/72
[2019-02-18] MEDS: CLOPIDOGREL 75 MG TAB PO SCH (08:31)
[2019-02-18] MEDS: ATORVASTATIN 10 MG TAB PO SCH (08:31)
--- NOTE | 2019-02-18 10:07 | DSES ---
DATE OF ADMISSION: 02/15/2019 DATE OF DISCHARGE: PRIMARY CARE PHYSICIAN: Kae Crenshaw DO ATTENDING TODAY: Chris Lim MD HISTORY: This is a 53-year-old male patient who presented to [facility] emergency room with left sided chest wall pain. He was sitting in a rolling chair when it slipped from underneath him and he fell backwards landing on his left shoulder/chest area. He was evaluated in the ER with negative imaging and discharged to home. He was noted to have an elevated white blood cell count above his baseline and acute kidney injury on reevaluation and therefore was admitted to the hospital for further monitoring. During his hospitalization, it was discovered that the patient had been having multiple loose stools and this was likely the cause of his acute kidney injury. He was started on IV fluids, gastrointestinal (GI) panel was positive norovirus. His diarrhea has subsided. His acute kidney injury has resolved. His leukocytosis has improved. He is eager to return home. He did undergo a negative chest x-ray and negative chest CT scan. His chest wall pain has improved as well. DISCHARGE DIAGNOSES: Include: 1. Gastroenteritis secondary to norovirus. 2. Acute kidney injury. 3. Leukocytosis. 4. Thrombocytosis. 5. Musculoskeletal chest pain. 6. Hypertension. 7. Asplenia. 8. Cerebrovascular accident (CVA) with monoplegia of the upper limb. DISCHARGE MEDICATIONS: Include: - lisinopril 20 mg by mouth daily - ibuprofen 200 mg every 6 hours as needed for pain - Plavix 75 mg daily - atorvastatin 10 mg by mouth daily DISCHARGE PLAN: 1. Follow-up with Dr. Calhoun in one week. 2. Activity should be as tolerated. 3. Diet is low cholesterol.
== END 2019-02-18 11:02 | disposition home or self-care (01) ==
LOC: M ED 13:51 → EDBD 13:51 → M ED INP 17:07 → M MSPAV 18:33
PROVIDERS: ADMIT Internal Medicine; ATTEND Family Medicine
DX: A08.11 Acute gastroenteropathy due to Norwalk agent (principal); N17.9 Acute kidney failure, unspecified; D72.829 Elevated white blood cell count, unspecified; D47.3 Essential (hemorrhagic) thrombocythemia; R07.89 Other chest pain; E78.5 Hyperlipidemia, unspecified; Z91.81 History of falling; I10 Essential (primary) hypertension; Z90.81 Acquired absence of spleen; I69.339 Monoplegia of upper limb following cerebral infarction affecting unspecified side; Z79.899 Other long term (current) drug therapy; Z79.02 Long term (current) use of antithrombotics/antiplatelets
CPT/HCPCS: 36415; 71046; 71275; 80048; 80053; 81001; 82550; 82553; 83735; 83880; 85025; 85610; 87040; 87086; 87486; 87502; 87507; 87581; 87633; 87798; 93005; 93041; 94640; 94760; 96361; 96372; 96374; 99285; J2270; Q9967

== ENCOUNTER 2019-06-03 13:11 | Emergency (ER) | payer OTHER ==
[~2019-06-03 13:11] MED LIST changes: +IBUP200T45 PO
[2019-06-03] MEDS ORDERED: CLOP75TA2 (13:20)
[2019-06-03] MEDS ORDERED: GI COCKTAIL 50ML BTL(HYOSCYAMINE/MAALOX/LIDOCAINE VISCOUS)(1:3:1) PO ONE (14:45)
[2019-06-03] MEDS ORDERED: NS 1,000 ML IV SCH (14:45)
[2019-06-03 14:47] LABS: BLOOD UREA NITROGEN 20 MG/DL (7-18); CALCIUM LEVEL 10.1 MG/DL (8.5-10.1); CARBON DIOXIDE LEVEL 26 MEQ/L (21-32); CHLORIDE LEVEL 106 MEQ/L (98-107); CK-MB VALUE MASS 1.7 NG/ML (<3.6); CPK CREATINE PHOSPHOKINASE 201 U/L (39-308); CREATININE FOR GFR 1.11 MG/DL (0.70-1.30); GLOMERULAR FILTRATION RATE > 60.0 (>56); GLUCOSE, FASTING 80 MG/DL (70-100); MB/CK RELATIVE INDEX 0.85 (< OR =4); POTASSIUM SERUM 4.6 MEQ/L (3.5-5.1); SODIUM LEVEL 138 MEQ/L (136-145); TROPONIN I < 0.02 NG/ML (< 0.10)
[2019-06-03 14:57] LABS: LIPASE 103 U/L (73-393)
[2019-06-03 15:14] LABS: BASO # 0.1 10^3/uL (0.0-0.2); BASO % 0.5 % (0.0-1.0); EOS % 0.2 % (0.0-3.0); HEMATOCRIT 44.3 % (42.0-52.0); HEMOGLOBIN 14.8 g/dl (13.5-17.5); LYMPH # 2.8 10^3/uL (1.5-4.5); LYMPH % 14.4 % (24.0-44.0); MEAN CORPUSCULAR HEMOGLOBIN 29.4 pg (27.0-33.0); MEAN CORPUSCULAR HGB CONC 33.4 g/dl (32.0-36.5); MEAN CORPUSCULAR VOLUME 87.9 fl (80.0-96.0); MONO # 1.7 10^3/uL (0.0-0.8); NEUTROPHILS # 14.5 10^3/uL (1.8-7.7); NEUTROPHILS % 74.7 % (36.0-66.0); PLATELET COUNT, AUTOMATED 589 10^3/uL (150-450); RED BLOOD COUNT 5.04 10^6/uL (4.30-6.10); WHITE BLOOD COUNT 19.4 10^3/uL (4.0-10.0)
--- NOTE | 2019-06-03 16:47 | REP ---
CHEST: SINGLE VIEW: There is no evidence of acute infiltrate. No pleural effusion is seen. The heart is normal in size. The mediastinal silhouette is unremarkable. The visualized osseous structures are intact. IMPRESSION: No acute pulmonary disease. Electronically Signed by Mike Roblero MD 06/04/2019 04:15 P
[2019-06-03 19:10] LABS: CK-MB VALUE MASS 1.7 NG/ML (<3.6); CPK CREATINE PHOSPHOKINASE 185 U/L (39-308); MB/CK RELATIVE INDEX 0.92 (< OR =4); TROPONIN I < 0.02 NG/ML (< 0.10)
[2019-06-03 19:58] VITALS: BP 120/55
--- NOTE | 2019-06-03 20:07 | ECGEPIP ---
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
--- NOTE | 2019-06-05 00:11 | ECGEPIP ---
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
== END 2019-06-03 20:00 | disposition home or self-care (01) ==
LOC: M ED 13:11
DX: K29.70 Gastritis, unspecified, without bleeding (principal); K21.9 Gastro-esophageal reflux disease without esophagitis; I10 Essential (primary) hypertension; E78.5 Hyperlipidemia, unspecified; Z79.899 Other long term (current) drug therapy; Z79.02 Long term (current) use of antithrombotics/antiplatelets; Z87.891 Personal history of nicotine dependence

== ENCOUNTER 2019-07-18 10:31 | Day surgery (SDC) | payer OTHER ==
[~2019-07-18] VITALS: Ht 185.4 cm; Wt 132.9 kg
[~2019-07-18 10:31] MED LIST changes: +CLOP75TA2; +NS 1,000 ML IV ONE
[2019-07-18] MEDS ORDERED: LIDOCAINE 2% INJ 100 MG/5 ML SDV (FOR ANES.) As Ordered ONE (12:42)
[2019-07-18] MEDS ORDERED: PROPOFOL 200 MG/20 ML VIAL As Ordered ONE ×2 (12:42→12:46)
--- NOTE | 2019-07-18 12:55 | ROOR ---
Patient Name: Jose Esparza Procedure Date: 07/18/2019 12:34 PM Date of : 1965 Age: 53 Room: [facility] Gender: Male Note Status: Finalized Procedure: Colonoscopy Indications: Screening for colorectal malignant neoplasm Providers: Collin Rios Jr, MD Referring MD: Kae SQUIRES DO Requesting Provider: Medicines: Propofol per Anesthesia Complications: No immediate complications. Procedure: Pre-Anesthesia Assessment: - Prior to the procedure, a History and Physical was performed, and patient medications and allergies were reviewed. The patient is competent. The risks and benefits of the procedure and the sedation options and risks were discussed with the patient. All questions were answered and informed consent was obtained. Patient identification and proposed procedure were verified by the physician and the nurse in the pre-procedure area and in the procedure room. Mental Status Examination: alert and oriented. Airway Examination: normal oropharyngeal airway and neck mobility. Respiratory Examination: clear to auscultation. CV Examination: normal. ASA Grade Assessment: III - A patient with severe systemic disease. After reviewing the risks and benefits, the patient was deemed in satisfactory condition to undergo the procedure. The anesthesia plan was to use moderate sedation / analgesia (conscious sedation). Immediately prior to administration of medications, the patient was re-assessed for adequacy to receive sedatives. The heart rate, respiratory rate, oxygen saturations, blood pressure, adequacy of pulmonary ventilation, and response to care were monitored throughout the procedure. The physical status of the patient was re-assessed after the procedure. The Colonoscope was introduced through the anus and advanced to the cecum, identified by appendiceal orifice and ileocecal valve. The colonoscopy was performed without difficulty. The patient tolerated the procedure well. The quality of the bowel preparation was poor. Findings: The recto-sigmoid colon, sigmoid colon, descending colon, transverse colon, ascending colon, cecum, appendiceal orifice and ileocecal valve appeared normal. A small polyp was found in the rectum. The polyp was removed with a cold snare. Resection and retrieval were complete. Impression: - Preparation of the colon was poor. - The recto-sigmoid colon, sigmoid colon, descending colon, transverse colon, ascending colon, cecum, appendiceal orifice and ileocecal valve are normal. - One small polyp in the rectum, removed with a cold snare. Resected and retrieved. Recommendation: - Discharge patient to home (ambulatory). - Repeat colonoscopy in 5 years for surveillance. Collin Rios MD Collin Rios Jr, MD 07/18/2019 12:55:32 PM Electronically signed by Collin Rios Jr, MD Number of Addenda: 0 Note Initiated On: 07/18/2019 12:34 PM Estimated Blood Loss: Estimated blood loss: none.
[2019-07-18 13:33] VITALS: BP 123/63
== END 2019-07-18 13:41 | disposition home or self-care (01) ==
LOC: M OPP 10:31
PROVIDERS: ATTEND Surgery
DX: Z12.11 Encounter for screening for malignant neoplasm of colon (principal); K62.1 Rectal polyp; F17.220 Nicotine dependence, chewing tobacco, uncomplicated; Z79.899 Other long term (current) drug therapy; Z86.73 Personal history of transient ischemic attack (TIA), and cerebral infarction without residual deficits

== ENCOUNTER 2020-01-06 07:50 | Emergency (ER) | payer OTHER ==
[~2020-01-06] VITALS: Ht 185.4 cm; Wt 135.5 kg
[~2020-01-06 07:50] MED LIST changes: +AUGM875T28 PO; -NS 1,000 ML IV ONE
[2020-01-06] MEDS ORDERED: NS 1,000 ML IV ONE (08:30)
[2020-01-06 08:42] LABS: BASO # 0.1 10^3/uL (0.0-0.2); BASO % 0.6 % (0.0-1.0); EOS # 0.1 10^3/uL (0.0-0.5); EOS % 0.7 % (0.0-3.0); HEMATOCRIT 45.8 % (42.0-52.0); HEMOGLOBIN 15.1 g/dl (13.5-17.5); LYMPH # 3.2 10^3/uL (1.5-5.0); MEAN CORPUSCULAR HEMOGLOBIN 29.4 pg (27.0-33.0); MEAN CORPUSCULAR VOLUME 89.3 fl (80.0-96.0); MONO # 1.2 10^3/uL (0.0-0.8); MONO % 8.4 % (0.0-5.0); NEUTROPHILS # 9.7 10^3/uL (1.5-8.5); NEUTROPHILS % 67.2 % (36.0-66.0); PLATELET COUNT, AUTOMATED 545 10^3/uL (150-450); RED BLOOD COUNT 5.13 10^6/uL (4.30-6.10); WHITE BLOOD COUNT 14.5 10^3/uL (4.0-10.0)
--- NOTE | 2020-01-06 08:45 | REP ---
Portable chest x-ray: Single view. History: Chest pain. Comparison study: September 27, 2019. Findings: EKG monitoring electrodes overlie the chest. Heart is not felt to be enlarged. The lungs are well inflated and clear. Pleural angles are sharp. There are old healed rib fractures on the left unchanged. No other bony abnormality is seen. Impression: No active disease. Electronically Signed by Clint Bill MD 01/06/2020 08:36 A
[2020-01-06 08:50] LABS: INR 1.02; PROTHROMBIN TIME 13.1 SECONDS (11.8-14.0)
[2020-01-06 09:07] LABS: ALT/SGPT 45 U/L (12-78); BILIRUBIN,DIRECT < 0.1 MG/DL (0.0-0.2); BILIRUBIN,TOTAL 0.3 MG/DL (0.2-1.0); CK-MB VALUE MASS 1.3 NG/ML (<3.6); CPK CREATINE PHOSPHOKINASE 108 U/L (39-308); LIPASE 115 U/L (73-393); TOTAL PROTEIN 8.2 GM/DL (6.4-8.2); TROPONIN I < 0.02 NG/ML (< 0.10)
[2020-01-06 09:25] LABS: INFLUENZA A AMPLIFICATION NEGATIVE (NEGATIVE); INFLUENZA B AMPLIFICATION NEGATIVE (NEGATIVE)
[2020-01-06 09:38] LABS: BLOOD UREA NITROGEN 15 MG/DL (7-18); CALCIUM LEVEL 9.9 MG/DL (8.5-10.1); CARBON DIOXIDE LEVEL 25 MEQ/L (21-32); CHLORIDE LEVEL 104 MEQ/L (98-107); CREATININE FOR GFR 0.81 MG/DL (0.70-1.30); GLOMERULAR FILTRATION RATE > 60.0 (>56); GLUCOSE, FASTING 107 MG/DL (70-100); NT-PRO BNP 6 PG/ML (<125); POTASSIUM SERUM 4.7 MEQ/L (3.5-5.1); SODIUM LEVEL 136 MEQ/L (136-145)
[2020-01-06] MEDS ORDERED: ISOVUE-370 76% 100ML VIAL (Q9967) As Ordered ONE (09:53)
--- NOTE | 2020-01-06 10:27 | REP ---
CT of the chest with IV contrast, CT pulmonary artery angiography: Comparison is 09/27/2019. There are no emboli in the pulmonary trunk or central pulmonary arteries. There are no emboli in the pulmonary lobe or segment branches. There are no infiltrates or pleural effusions. There are no masses or nodules. There is no mediastinal lymph node enlargement. There are a few normal-sized nodes. This is unchanged. The there is no axillary lymph node enlargement. There is no hilar lymph node enlargement. The thoracic aorta is unremarkable. Cardiac size is upper normal. There is no pericardial effusion. The visualized upper abdominal contents are unchanged. 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 There are regenerated splenic nodules in the left upper quadrant. Impression: There are no pulmonary emboli. Otherwise, negative CT study of the chest. No interval change. Electronically Signed by Mike Draper MD 01/06/2020 10:19 A
[2020-01-06] MEDS ORDERED: KETOROLAC 30 MG/ML VIAL (J1885) IV ONE (10:45)
[2020-01-06] MEDS ORDERED: GI COCKTAIL 50ML BTL(HYOSCYAMINE/MAALOX/LIDOCAINE VISCOUS)(1:3:1) PO ONE (10:45)
--- NOTE | 2020-01-06 11:16 | ECGEPIP ---
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
--- NOTE | 2020-01-06 11:17 | ECGEPIP ---
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
[2020-01-06 12:21] LABS: CK-MB VALUE MASS < 1.0 NG/ML (<3.6); CPK CREATINE PHOSPHOKINASE 95 U/L (39-308); MB/CK RELATIVE INDEX 1.05 (< OR =4); TROPONIN I < 0.02 NG/ML (< 0.10)
[2020-01-06] MEDS ORDERED: KETO10TAB PO (12:50)
[2020-01-06 12:56] VITALS: BP 129/72
== END 2020-01-06 13:27 | disposition home or self-care (01) ==
LOC: M ED 07:50
DX: R07.89 Other chest pain (principal); R05 Cough; M79.10 Myalgia, unspecified site; E78.5 Hyperlipidemia, unspecified; Z86.73 Personal history of transient ischemic attack (TIA), and cerebral infarction without residual deficits; Z79.01 Long term (current) use of anticoagulants; Z79.899 Other long term (current) drug therapy
CPT/HCPCS: 71045; 71275; 80048; 80076; 82550; 82553; 83690; 83880; 85025; 85610; 87486; 87502; 87581; 87633; 87798; 93005; 93041; 94760; 96361; 96374; 99285; J1885; Q9967

== ENCOUNTER → 2020-08-14 | Outpatient (REF) | payer OTHER ==
[~2020-08-14] MED LIST changes: +KETO10TAB PO
[2020-08-14 13:19] LABS: BASO # 0.1 10^3/uL (0.0-0.2); BASO % 0.6 % (0.0-1.0); EOS # 0.1 10^3/uL (0.0-0.5); EOS % 0.8 % (0.0-3.0); HEMATOCRIT 46.9 % (42.0-52.0); HEMOGLOBIN 14.8 g/dl (13.5-17.5); LYMPH % 28.1 % (24.0-44.0); MEAN CORPUSCULAR HEMOGLOBIN 28.7 pg (27.0-33.0); MEAN CORPUSCULAR HGB CONC 31.6 g/dl (32.0-36.5); MEAN CORPUSCULAR VOLUME 90.9 fl (80.0-96.0); MONO # 1.1 10^3/uL (0.0-0.8); MONO % 7.6 % (0.0-5.0); NEUTROPHILS # 8.9 10^3/uL (1.5-8.5); NEUTROPHILS % 62.1 % (36.0-66.0); PLATELET COUNT, AUTOMATED 629 10^3/uL (150-450); RED BLOOD COUNT 5.16 10^6/uL (4.30-6.10); WHITE BLOOD COUNT 14.3 10^3/uL (4.0-10.0)
[2020-08-14 13:55] LABS: ALBUMIN 3.9 GM/DL (3.2-5.2); ALT/SGPT 43 U/L (12-78); BILIRUBIN,TOTAL 0.3 MG/DL (0.2-1.0); BLOOD UREA NITROGEN 14 MG/DL (7-18); CALCIUM LEVEL 9.9 MG/DL (8.5-10.1); CARBON DIOXIDE LEVEL 26 MEQ/L (21-32); CHLORIDE LEVEL 107 MEQ/L (98-107); CREATININE FOR GFR 0.84 MG/DL (0.70-1.30); GLOMERULAR FILTRATION RATE > 60.0 (>56); GLUCOSE, FASTING 101 MG/DL (70-100); SODIUM LEVEL 138 MEQ/L (136-145); TOTAL PROTEIN 7.7 GM/DL (6.4-8.2)
== END ==
LOC: M SFHCADAM 12:28
PROVIDERS: ATTEND Family Medicine
DX: Z00.00 Encounter for general adult medical examination without abnormal findings (principal); Z86.73 Personal history of transient ischemic attack (TIA), and cerebral infarction without residual deficits

== ENCOUNTER 2020-10-20 10:04 | Emergency (ER) | payer OTHER ==
[~2020-10-20] VITALS: Ht 185.4 cm; Wt 113.6 kg
[2020-10-20 11:10] LABS: BASO # 0.1 10^3/uL (0.0-0.2); BASO % 0.6 % (0.0-1.0); EOS # 0.1 10^3/uL (0.0-0.5); HEMATOCRIT 42.1 % (42.0-52.0); HEMOGLOBIN 13.4 g/dl (13.5-17.5); LYMPH # 2.5 10^3/uL (1.5-5.0); LYMPH % 19.7 % (24.0-44.0); MEAN CORPUSCULAR HEMOGLOBIN 28.3 pg (27.0-33.0); MEAN CORPUSCULAR HGB CONC 31.8 g/dl (32.0-36.5); MONO # 1.2 10^3/uL (0.0-0.8); MONO % 9.1 % (0.0-5.0); NEUTROPHILS # 8.6 10^3/uL (1.5-8.5); NEUTROPHILS % 68.6 % (36.0-66.0); PLATELET COUNT, AUTOMATED 508 10^3/uL (150-450); RED BLOOD COUNT 4.73 10^6/uL (4.30-6.10); WHITE BLOOD COUNT 12.6 10^3/uL (4.0-10.0)
[2020-10-20 11:22] LABS: INR 0.97; PROTHROMBIN TIME 13.1 SECONDS (12.5-14.3)
[2020-10-20 11:25] LABS: D-DIMER QUANT 359.81 ng/ml (<500)
--- NOTE | 2020-10-20 11:26 | REP ---
INDICATION: CHEST PAIN. COMPARISON: PA and lateral chest dated 02/15/2019 and portable chest dated 01/06/2020. TECHNIQUE: Single AP view of the chest performed portably with the patient sitting. FINDINGS: The lung kang are clear. Cardiac size is normal. The rosal[place], mediastinum and skeletal structures are unremarkable. There is no change from the comparison studies. IMPRESSION: Essentially negative PA and lateral chest <Electronically signed by Mike Draper > 10/20/20 1122
[2020-10-20 11:44] LABS: ALBUMIN 3.5 GM/DL (3.2-5.2); ALT/SGPT 41 U/L (12-78); BILIRUBIN,DIRECT < 0.1 MG/DL (0.0-0.2); BILIRUBIN,TOTAL 0.3 MG/DL (0.2-1.0); BLOOD UREA NITROGEN 20 MG/DL (7-18); CALCIUM LEVEL 9.6 MG/DL (8.5-10.1); CARBON DIOXIDE LEVEL 25 MEQ/L (21-32); CHLORIDE LEVEL 110 MEQ/L (98-107); CK-MB VALUE MASS 1.6 NG/ML (<3.6); CPK CREATINE PHOSPHOKINASE 135 U/L (39-308); CREATININE FOR GFR 0.75 MG/DL (0.70-1.30); GLOMERULAR FILTRATION RATE > 60.0 (>56); GLUCOSE, FASTING 94 MG/DL (70-100); LIPASE 96 U/L (73-393); MB/CK RELATIVE INDEX 1.19 (< OR =4); NT-PRO BNP 23 PG/ML (<125); POTASSIUM SERUM 4.5 MEQ/L (3.5-5.1); SODIUM LEVEL 139 MEQ/L (136-145); THYROID STIMULATING HORMONE 0.836 uIU/ML (0.358-3.740); TROPONIN I < 0.02 NG/ML (< 0.10)
[2020-10-20 15:23] LABS: CK-MB VALUE MASS 1.5 NG/ML (<3.6); CPK CREATINE PHOSPHOKINASE 135 U/L (39-308); MB/CK RELATIVE INDEX 1.11 (< OR =4); TROPONIN I < 0.02 NG/ML (< 0.10)
[2020-10-20 16:04] VITALS: BP 138/77
--- NOTE | 2020-10-21 08:25 | ECGEPIP ---
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
--- NOTE | 2020-10-21 08:32 | ECGEPIP ---
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
== END 2020-10-20 16:06 | disposition home or self-care (01) ==
LOC: EDBD 10:04 → M ED 10:04
DX: R07.89 Other chest pain (principal); I25.10 Atherosclerotic heart disease of native coronary artery without angina pectoris; Z86.73 Personal history of transient ischemic attack (TIA), and cerebral infarction without residual deficits; E78.5 Hyperlipidemia, unspecified; Z79.899 Other long term (current) drug therapy; Z79.01 Long term (current) use of anticoagulants

== ENCOUNTER → 2021-03-29 | Outpatient (REF) | payer OTHER ==
[~2021-03-29] MED LIST changes: -LISI-538 PO; +LISI20TA33 PO
[2021-03-29 13:02] LABS: ALBUMIN 3.8 GM/DL (3.2-5.2); ALT/SGPT 70 U/L (12-78); BILIRUBIN,TOTAL 0.3 MG/DL (0.2-1.0); BLOOD UREA NITROGEN 20 MG/DL (7-18); CALCIUM LEVEL 10.3 MG/DL (8.5-10.1); CARBON DIOXIDE LEVEL 29 MEQ/L (21-32); CHLORIDE LEVEL 106 MEQ/L (98-107); CHOLESTEROL LEVEL 153 MG/DL (<200); CHOLESTEROL RISK RATIO 3.923 (<5); CREATININE FOR GFR 0.74 MG/DL (0.70-1.30); GLOMERULAR FILTRATION RATE > 60.0 (>56); GLUCOSE, FASTING 107 MG/DL (70-100); HDL CHOLESTEROL 39 MG/DL (>40); LDL CHOLESTEROL 101 MG/DL (<100); NON-HDL-C 114 MG/DL; POTASSIUM SERUM 5.1 MEQ/L (3.5-5.1); SODIUM LEVEL 138 MEQ/L (136-145); TOTAL 25(OH) VITAMIN D 12.3 NG/ML (30.0-100.0); TOTAL PROTEIN 7.6 GM/DL (6.4-8.2); TRIGLYCERIDES LEVEL 67 MG/DL (<150)
== END ==
LOC: M SFHCADAM 07:57
PROVIDERS: ATTEND Family Medicine
DX: Z00.00 Encounter for general adult medical examination without abnormal findings (principal); R53.83 Other fatigue

== ENCOUNTER → 2021-09-09 | Outpatient (REF) | payer OTHER ==
[~2021-09-09] MED LIST changes: -IBUP200T45 PO; +IBUP200T46 PO
[2021-09-09 13:12] LABS: ALBUMIN 3.8 GM/DL (3.2-5.2); ALT/SGPT 35 U/L (12-78); BILIRUBIN,TOTAL 0.4 MG/DL (0.2-1.0); BLOOD UREA NITROGEN 15 MG/DL (7-18); CALCIUM LEVEL 10.6 MG/DL (8.5-10.1); CARBON DIOXIDE LEVEL 30 MEQ/L (21-32); CHLORIDE LEVEL 105 MEQ/L (98-107); CHOLESTEROL LEVEL 130 MG/DL (<200); CHOLESTEROL RISK RATIO 3.421 (<5); CREATININE FOR GFR 0.86 MG/DL (0.70-1.30); GLOMERULAR FILTRATION RATE > 60.0 (>56); GLUCOSE, FASTING 111 MG/DL (70-100); HDL CHOLESTEROL 38 MG/DL (>40); LDL CHOLESTEROL 79 MG/DL (<100); NON-HDL-C 92 MG/DL; SODIUM LEVEL 136 MEQ/L (136-145); TOTAL PROTEIN 7.7 GM/DL (6.4-8.2); TRIGLYCERIDES LEVEL 65 MG/DL (<150)
== END ==
LOC: M SFHCADAM 08:11
PROVIDERS: ATTEND Family Medicine
DX: I10 Essential (primary) hypertension (principal)

== ENCOUNTER → 2021-11-03 | Outpatient (REF) | payer OTHER ==
[2021-11-03 13:12] LABS: BASO # 0.1 10^3/uL (0.0-0.2); BASO % 0.7 % (0.0-1.0); EOS # 0.2 10^3/uL (0.0-0.5); EOS % 1.2 % (0.0-3.0); HEMATOCRIT 45.4 % (42.0-52.0); HEMOGLOBIN 14.6 g/dl (13.5-17.5); LYMPH # 3.7 10^3/uL (1.5-5.0); LYMPH % 26.6 % (24.0-44.0); MEAN CORPUSCULAR HGB CONC 32.2 g/dl (32.0-36.5); MEAN CORPUSCULAR VOLUME 90.1 fl (80.0-96.0); MONO # 1.2 10^3/uL (0.0-0.8); MONO % 8.5 % (2.0-8.0); NEUTROPHILS # 8.6 10^3/uL (1.5-8.5); NEUTROPHILS % 62.1 % (36.0-66.0); PLATELET COUNT, AUTOMATED 541 10^3/uL (150-450); RED BLOOD COUNT 5.04 10^6/uL (4.30-6.10); WHITE BLOOD COUNT 13.9 10^3/uL (4.0-10.0)
[2021-11-03 13:15] LABS: ALBUMIN 3.8 GM/DL (3.2-5.2); ALT/SGPT 43 U/L (12-78); BILIRUBIN,TOTAL 0.4 MG/DL (0.2-1.0); BLOOD UREA NITROGEN 13 MG/DL (7-18); CARBON DIOXIDE LEVEL 23 MEQ/L (21-32); CHLORIDE LEVEL 110 MEQ/L (98-107); CREATININE FOR GFR 0.74 MG/DL (0.70-1.30); GLOMERULAR FILTRATION RATE > 60.0 (>56); GLUCOSE, FASTING 103 MG/DL (70-100); POTASSIUM SERUM 4.6 MEQ/L (3.5-5.1); SODIUM LEVEL 140 MEQ/L (136-145); TOTAL PROTEIN 7.7 GM/DL (6.4-8.2)
== END ==
LOC: M SFHCADAM 09:25
PROVIDERS: ATTEND Family Medicine
DX: Z01.818 Encounter for other preprocedural examination (principal)

== ENCOUNTER 2021-12-24 06:22 | Emergency (ER) | payer OTHER ==
[~2021-12-24] VITALS: Ht 185.4 cm; Wt 136.1 kg
[2021-12-24] MEDS ORDERED: LIDOCAINE 5% (LIDODERM) PATCH TD ONE (08:35)
[2021-12-24] MEDS ORDERED: ACETAMINOPHEN 500 MG TAB PO ONE (08:35)
[2021-12-24] MEDS ORDERED: ASPE4PAD TOP (09:36)
[2021-12-24] MEDS ORDERED: QC A650T3 PO (09:36)
[2021-12-24 10:38] VITALS: BP 148/83
[2021-12-24] MEDS ORDERED: **NOTE PATIENT COMMENT** MISC XX SCH (21:00)
== END 2021-12-24 10:40 | disposition home or self-care (01) ==
LOC: M ED 06:22
DX: M54.6 Pain in thoracic spine (principal); Z86.73 Personal history of transient ischemic attack (TIA), and cerebral infarction without residual deficits; Z79.899 Other long term (current) drug therapy

== ENCOUNTER → 2022-02-28 | Outpatient (REF) | payer OTHER ==
[~2022-02-28] MED LIST changes: +ASPE4PAD TOP; +QC A650T3 PO
[2022-02-28 16:47] LABS: BASO # 0.1 10^3/uL (0.0-0.2); BASO % 0.8 % (0.0-1.0); EOS # 0.1 10^3/uL (0.0-0.5); EOS % 0.8 % (0.0-3.0); HEMATOCRIT 44.5 % (42.0-52.0); HEMOGLOBIN 14.5 g/dl (13.5-17.5); LYMPH # 4.4 10^3/uL (1.5-5.0); LYMPH % 28.1 % (24.0-44.0); MEAN CORPUSCULAR HGB CONC 32.6 g/dl (32.0-36.5); MEAN CORPUSCULAR VOLUME 91.9 fl (80.0-96.0); MONO % 11.7 % (2.0-8.0); NEUTROPHILS # 9.1 10^3/uL (1.5-8.5); NEUTROPHILS % 57.9 % (36.0-66.0); PLATELET COUNT, AUTOMATED 530 10^3/uL (150-450); RED BLOOD COUNT 4.84 10^6/uL (4.30-6.10); WHITE BLOOD COUNT 15.8 10^3/uL (4.0-10.0)
[2022-02-28 17:28] LABS: ALT/SGPT 57 U/L (12-78); BILIRUBIN,TOTAL 0.5 MG/DL (0.2-1.0); BLOOD UREA NITROGEN 12 MG/DL (7-18); CALCIUM LEVEL 9.9 MG/DL (8.5-10.1); CARBON DIOXIDE LEVEL 29 MEQ/L (21-32); CHLORIDE LEVEL 107 MEQ/L (98-107); CREATININE FOR GFR 0.81 MG/DL (0.70-1.30); GLOMERULAR FILTRATION RATE > 60.0 (>56); GLUCOSE, FASTING 69 MG/DL (70-100); POTASSIUM SERUM 4.6 MEQ/L (3.5-5.1); SODIUM LEVEL 140 MEQ/L (136-145); TOTAL PROTEIN 7.6 GM/DL (6.4-8.2)
[2022-02-28 17:37] LABS: MONO # 1.8 10^3/uL (0.0-0.8)
== END ==
LOC: M SFHCADAM 13:39
PROVIDERS: ATTEND Family Medicine
DX: Z01.810 Encounter for preprocedural cardiovascular examination (principal)

== ENCOUNTER → 2022-03-17 | Outpatient (REF) | payer OTHER ==
[2022-03-17 13:21] LABS: BASO # 0.1 10^3/uL (0.0-0.2); BASO % 0.7 % (0.0-1.0); EOS # 0.1 10^3/uL (0.0-0.5); EOS % 0.4 % (0.0-3.0); HEMOGLOBIN 14.4 g/dl (13.5-17.5); LYMPH % 26.4 % (24.0-44.0); MEAN CORPUSCULAR HEMOGLOBIN 29.8 pg (27.0-33.0); MEAN CORPUSCULAR HGB CONC 32.7 g/dl (32.0-36.5); MEAN CORPUSCULAR VOLUME 90.9 fl (80.0-96.0); MONO # 1.3 10^3/uL (0.0-0.8); MONO % 8.7 % (2.0-8.0); NEUTROPHILS # 9.6 10^3/uL (1.5-8.5); NEUTROPHILS % 63.1 % (36.0-66.0); PLATELET COUNT, AUTOMATED 576 10^3/uL (150-450); RED BLOOD COUNT 4.84 10^6/uL (4.30-6.10); WHITE BLOOD COUNT 15.2 10^3/uL (4.0-10.0)
[2022-03-17 13:38] LABS: ALBUMIN 3.9 GM/DL (3.2-5.2); ALT/SGPT 35 U/L (12-78); BILIRUBIN,TOTAL 0.4 MG/DL (0.2-1.0); BLOOD UREA NITROGEN 13 MG/DL (7-18); CALCIUM LEVEL 10.4 MG/DL (8.5-10.1); CARBON DIOXIDE LEVEL 26 MEQ/L (21-32); CHLORIDE LEVEL 107 MEQ/L (98-107); CHOLESTEROL LEVEL 119 MG/DL (<200); CREATININE FOR GFR 0.72 MG/DL (0.70-1.30); GLOMERULAR FILTRATION RATE > 60.0 (>56); GLUCOSE, FASTING 98 MG/DL (70-100); HDL CHOLESTEROL 35 MG/DL (>40); LDL CHOLESTEROL 67 MG/DL (<100); NON-HDL-C 84 MG/DL; POTASSIUM SERUM 4.5 MEQ/L (3.5-5.1); SODIUM LEVEL 138 MEQ/L (136-145); TOTAL PROTEIN 7.4 GM/DL (6.4-8.2); TRIGLYCERIDES LEVEL 83 MG/DL (<150)
== END ==
LOC: M SFHCADAM 08:39
PROVIDERS: ATTEND Family Medicine
DX: Z00.00 Encounter for general adult medical examination without abnormal findings (principal)

== ENCOUNTER → 2022-03-30 | Outpatient (REF) | payer OTHER ==
[2022-03-30 13:27] LABS: C REACTIVE PROTEIN QUANTITATIV 0.81 MG/DL (0.00-0.30); RHEUMATOID FACTOR QUANT < 10.0 IU/ML (<15.0)
[2022-04-01 01:07] LABS: ANTINUCLEAR ANTIBODIES DIRECT Negative (Negative); CYCLIC CITRULLINATED PEPTIDE 2 units (0-19)
== END ==
LOC: M SFHCADAM 09:50
PROVIDERS: ATTEND Family Medicine
DX: M54.6 Pain in thoracic spine (principal)

== ENCOUNTER 2022-07-09 10:14 | Emergency (ER) | payer OTHER ==
[~2022-07-09] VITALS: Ht 185.4 cm; Wt 109.1 kg
[2022-07-09 11:04] LABS: BASO # 0.1 10^3/uL (0.0-0.2); BASO % 0.8 % (0.0-1.0); EOS # 0.1 10^3/uL (0.0-0.5); EOS % 0.8 % (0.0-3.0); HEMATOCRIT 41.7 % (42.0-52.0); HEMOGLOBIN 13.6 g/dl (13.5-17.5); LYMPH # 3.1 10^3/uL (1.5-5.0); LYMPH % 24.5 % (24.0-44.0); MEAN CORPUSCULAR HEMOGLOBIN 29.8 pg (27.0-33.0); MEAN CORPUSCULAR HGB CONC 32.6 g/dl (32.0-36.5); MEAN CORPUSCULAR VOLUME 91.4 fl (80.0-96.0); MONO # 1.1 10^3/uL (0.0-0.8); MONO % 8.4 % (2.0-8.0); NEUTROPHILS # 8.2 10^3/uL (1.5-8.5); NEUTROPHILS % 64.6 % (36.0-66.0); PLATELET COUNT, AUTOMATED 511 10^3/uL (150-450); RED BLOOD COUNT 4.56 10^6/uL (4.30-6.10); WHITE BLOOD COUNT 12.7 10^3/uL (4.0-10.0)
[2022-07-09 11:41] LABS: CK-MB VALUE MASS 1.5 NG/ML (<3.6); MB/CK RELATIVE INDEX 1.23 (< OR =4)
[2022-07-09 11:46] LABS: ALBUMIN 3.6 GM/DL (3.2-5.2); ALT/SGPT 32 U/L (12-78); BILIRUBIN,DIRECT 0.1 MG/DL (0.0-0.2); BILIRUBIN,TOTAL 0.2 MG/DL (0.2-1.0); BLOOD UREA NITROGEN 13 MG/DL (7-18); CALCIUM LEVEL 9.4 MG/DL (8.5-10.1); CARBON DIOXIDE LEVEL 25 MEQ/L (21-32); CHLORIDE LEVEL 108 MEQ/L (98-107); FREE T4 0.92 NG/DL (0.76-1.46); GLOMERULAR FILTRATION RATE > 60.0 (>56); GLUCOSE, FASTING 102 MG/DL (70-100); LIPASE 117 U/L (73-393); NT-PRO BNP 11 PG/ML (<125); POTASSIUM SERUM 4.7 MEQ/L (3.5-5.1); SODIUM LEVEL 137 MEQ/L (136-145); TOTAL PROTEIN 7.3 GM/DL (6.4-8.2)
[2022-07-09 12:18] LABS: MB/CK RELATIVE INDEX 0.88 (< OR =4)
[2022-07-09] MEDS ORDERED: ISOVUE-370 76% 100ML VIAL As Ordered ONE (13:50)
[2022-07-09 15:46] LABS: RSV AMPLIFICATION NEGATIVE (NEGATIVE)
[2022-07-09 16:31] VITALS: BP 108/81
== END 2022-07-09 16:42 | disposition home or self-care (01) ==
LOC: M ED 10:14 → EDBD 10:14 → M ED 16:42
DX: R06.02 Shortness of breath (principal); R78.5 Finding of other psychotropic drug in blood; Z86.73 Personal history of transient ischemic attack (TIA), and cerebral infarction without residual deficits; Z87.891 Personal history of nicotine dependence; Z82.3 Family history of stroke; Z80.9 Family history of malignant neoplasm, unspecified; Z79.02 Long term (current) use of antithrombotics/antiplatelets; Z79.899 Other long term (current) drug therapy
CPT/HCPCS: 71045; 71275; 80048; 80076; 82550; 82553; 83690; 83880; 84439; 84443; 85025; 87631; 93005; 93041; 94760; 99285; Q9967

== ENCOUNTER → 2022-08-19 | Outpatient (CLI) | payer OTHER | LOC: M ADAMS 08:52 | PROVIDERS: ATTEND Family Medicine | DX: M54.50 Low back pain, unspecified (principal); M47.816 Spondylosis without myelopathy or radiculopathy, lumbar region ==

== ENCOUNTER → 2022-08-23 | Outpatient (REF) | payer OTHER | LOC: M SFHCADAM 16:28 | PROVIDERS: ATTEND Family Medicine | DX: J34.89 Other specified disorders of nose and nasal sinuses (principal) ==

== ENCOUNTER → 2022-08-25 | Outpatient (REF) | payer OTHER ==
[2022-08-25 14:00] LABS: BASO # 0.1 10^3/uL (0.0-0.2); BASO % 0.7 % (0.0-1.0); EOS # 0.1 10^3/uL (0.0-0.5); EOS % 0.9 % (0.0-3.0); HEMATOCRIT 44.6 % (42.0-52.0); HEMOGLOBIN 14.2 g/dl (13.5-17.5); LYMPH # 4.3 10^3/uL (1.5-5.0); LYMPH % 30.9 % (24.0-44.0); MEAN CORPUSCULAR HEMOGLOBIN 29.3 pg (27.0-33.0); MEAN CORPUSCULAR HGB CONC 31.8 g/dl (32.0-36.5); MONO % 7.2 % (2.0-8.0); NEUTROPHILS # 8.2 10^3/uL (1.5-8.5); NEUTROPHILS % 59.2 % (36.0-66.0); PLATELET COUNT, AUTOMATED 563 10^3/uL (150-450); RED BLOOD COUNT 4.85 10^6/uL (4.30-6.10); WHITE BLOOD COUNT 13.8 10^3/uL (4.0-10.0)
[2022-08-25 14:37] LABS: ALBUMIN 3.7 GM/DL (3.2-5.2); ALT/SGPT 39 U/L (12-78); BILIRUBIN,TOTAL 0.4 MG/DL (0.2-1.0); BLOOD UREA NITROGEN 14 MG/DL (7-18); CALCIUM LEVEL 10.2 MG/DL (8.5-10.1); CARBON DIOXIDE LEVEL 28 MEQ/L (21-32); CHLORIDE LEVEL 105 MEQ/L (98-107); CREATININE FOR GFR 0.84 MG/DL (0.70-1.30); GLOMERULAR FILTRATION RATE > 60.0 (>56); GLUCOSE, FASTING 107 MG/DL (70-100); POTASSIUM SERUM 4.8 MEQ/L (3.5-5.1); RHEUMATOID FACTOR QUANT < 10.0 IU/ML (<15.0); SODIUM LEVEL 137 MEQ/L (136-145); TOTAL PROTEIN 7.5 GM/DL (6.4-8.2); URIC ACID 5.9 MG/DL (3.5-7.2)
[2022-08-25 15:19] LABS: ERYTHROCYTE SEDIMENTATION RATE 10 mm/hr (0-20)
== END ==
LOC: M SFHCADAM 09:32
PROVIDERS: ATTEND Family Medicine
DX: M54.50 Low back pain, unspecified (principal)

== ENCOUNTER → 2023-02-02 | Outpatient (REF) | payer OTHER ==
[~2023-02-02] MED LIST changes: +CLOP75TA99 PO; -PLAV1TAB2 PO
[2023-02-02 17:37] LABS: TOTAL 25(OH) VITAMIN D 36.4 NG/ML (20.0-100.0)
[2023-02-02 17:39] LABS: MAGNESIUM LEVEL 1.9 MG/DL (1.8-2.4); PHOSPHORUS LEVEL 3.7 MG/DL (2.5-4.9)
== END ==
LOC: M SFHCRHEU 14:30
PROVIDERS: ATTEND Internal Medicine
DX: M79.10 Myalgia, unspecified site (principal)

== ENCOUNTER → 2023-02-27 | Outpatient (CLI) | payer OTHER | LOC: M RAD 07:20 | PROVIDERS: ATTEND Internal Medicine | DX: M54.6 Pain in thoracic spine (principal) ==

== ENCOUNTER 2023-03-01 14:55 | Outpatient (RCR) | payer OTHER | END 2023-03-12 | LOC: M PT 14:55 | PROVIDERS: ATTEND Internal Medicine | DX: M47.814 Spondylosis without myelopathy or radiculopathy, thoracic region (principal); M47.816 Spondylosis without myelopathy or radiculopathy, lumbar region ==

== ENCOUNTER 2023-03-15 08:40 | Outpatient (RCR) | payer OTHER ==
[2023-03-21] MEDS ORDERED: ASPE4PAD TOP (08:53)
[2023-03-21] MEDS ORDERED: METH-1165 PO (08:53)
== END 2023-04-12 ==
LOC: M PT 08:40
PROVIDERS: ATTEND Internal Medicine
DX: M47.814 Spondylosis without myelopathy or radiculopathy, thoracic region (principal); M47.816 Spondylosis without myelopathy or radiculopathy, lumbar region

== ENCOUNTER 2023-03-21 08:06 | Emergency (ER) | payer OTHER ==
[~2023-03-21] VITALS: Ht 185.4 cm; Wt 133.0 kg
[2023-03-21] MEDS ORDERED: methocarbamoL 750 MG TAB PO ONE (08:50)
[2023-03-21] MEDS ORDERED: LIDOCAINE 5% (LIDODERM) PATCH TD ONE (08:50)
[2023-03-21] MEDS ORDERED: ASPE4PAD TOP (08:53)
[2023-03-21] MEDS ORDERED: METH-1165 PO (08:53)
[2023-03-21 10:10] VITALS: BP 122/63
== END 2023-03-21 10:42 | disposition home or self-care (01) ==
LOC: M ED 08:06
DX: M54.9 Dorsalgia, unspecified (principal); G89.29 Other chronic pain; M47.9 Spondylosis, unspecified; Z86.73 Personal history of transient ischemic attack (TIA), and cerebral infarction without residual deficits; Z79.02 Long term (current) use of antithrombotics/antiplatelets; Z79.899 Other long term (current) drug therapy

== ENCOUNTER 2023-05-28 14:55 | Emergency (ER) | payer OTHER ==
[~2023-05-28] VITALS: Ht 185.4 cm; Wt 90.9 kg
[~2023-05-28 14:55] MED LIST changes: +METH-1165 PO
[2023-05-28] MEDS ORDERED: VITA100093 PO (15:08)
[2023-05-28] MEDS ORDERED: ATOR1TAB21 PO (15:08)
[2023-05-28 16:00] VITALS: TEMP 96.4
[2023-05-28] MEDS ORDERED: methocarbamoL 750 MG TAB PO ONE (16:15)
[2023-05-28] MEDS ORDERED: METH-1165 PO (18:57)
[2023-05-28] MEDS ORDERED: APAP325T4 PO (19:00)
[2023-05-28 20:08] VITALS: BP 122/71; O2SAT 96
== END 2023-05-28 20:09 | disposition home or self-care (01) ==
LOC: EDBD 14:55 → M ED 14:55
DX: M25.512 Pain in left shoulder (principal); E78.5 Hyperlipidemia, unspecified; I10 Essential (primary) hypertension; Z86.79 Personal history of other diseases of the circulatory system; Z87.891 Personal history of nicotine dependence; Z79.02 Long term (current) use of antithrombotics/antiplatelets; Z79.811 Long term (current) use of aromatase inhibitors; Z79.899 Other long term (current) drug therapy

== ENCOUNTER 2023-07-29 09:40 | Emergency (ER) | payer OTHER ==
[~2023-07-29] VITALS: Ht 185.4 cm; Wt 134.5 kg
[2023-07-29 09:40] VITALS: BP 130/67; TEMP 98.4; O2SAT 96
[~2023-07-29 09:40] MED LIST changes: +APAP325T4 PO; +ATOR1TAB21 PO; +VITA100093 PO
== END 2023-07-29 10:56 | disposition left against medical advice (07) ==
LOC: M ED 09:40
DX: Z53.21 Procedure and treatment not carried out due to patient leaving prior to being seen by health care provider (principal)

== ENCOUNTER 2023-08-20 14:40 | Emergency (ER) | payer OTHER ==
[~2023-08-20] VITALS: Ht 185.4 cm; Wt 135.6 kg
[~2023-08-20 14:40] MED LIST changes: +IBUP-1022 PO
[2023-08-20] MEDS ORDERED: DEBR6.5S4 OTIC (17:46)
[2023-08-20 18:03] VITALS: BP 187/94; TEMP 96.8; O2SAT 98
== END 2023-08-20 18:04 | disposition home or self-care (01) ==
LOC: M ED 14:40
DX: H61.23 Impacted cerumen, bilateral (principal); I10 Essential (primary) hypertension; E78.5 Hyperlipidemia, unspecified; Z86.73 Personal history of transient ischemic attack (TIA), and cerebral infarction without residual deficits; Z79.899 Other long term (current) drug therapy

== ENCOUNTER 2023-08-21 20:11 | Emergency (ER) | payer OTHER ==
[~2023-08-21] VITALS: Ht 185.4 cm; Wt 99.8 kg
[~2023-08-21 20:11] MED LIST changes: +DEBR6.5S4 OTIC
[2023-08-21] MEDS ORDERED: diazePAM 10MG/2ML SYRINGE IM ONE (23:15)
[2023-08-22] MEDS ORDERED: MEDR4PAK PO (00:51)
[2023-08-22] MEDS ORDERED: predniSONE 20 MG TAB PO ONE (00:55)
[2023-08-22 01:35] VITALS: BP 118/60; TEMP 97.9; O2SAT 99
== END 2023-08-22 01:37 | disposition home or self-care (01) ==
LOC: M ED 20:11 → EDBD 20:11 → M ED 08-22 01:37
DX: M54.6 Pain in thoracic spine (principal); G89.4 Chronic pain syndrome; M46.96 Unspecified inflammatory spondylopathy, lumbar region; M25.70 Osteophyte, unspecified joint; I10 Essential (primary) hypertension; E78.5 Hyperlipidemia, unspecified; Z79.02 Long term (current) use of antithrombotics/antiplatelets; Z79.811 Long term (current) use of aromatase inhibitors; Z79.899 Other long term (current) drug therapy
CPT/HCPCS: 72072; 72110; 96372; 99284; J3360; J7512

== ENCOUNTER 2023-08-22 21:38 | Emergency (ER) | payer OTHER ==
[~2023-08-22] VITALS: Ht 185.4 cm; Wt 118.2 kg
[~2023-08-22 21:38] MED LIST changes: +MEDR4PAK PO
[2023-08-22 21:46] VITALS: TEMP 96.3
[2023-08-22] MEDS ORDERED: KETOROLAC TROMETHAMINE 10 MG TAB PO ONE (22:05)
[2023-08-22 22:31] VITALS: BP 112/51
[2023-08-22 22:45] VITALS: O2SAT 96
== END 2023-08-22 23:02 | disposition home or self-care (01) ==
LOC: M ED 21:38 → EDBD 21:38 → M ED 23:02
DX: M54.6 Pain in thoracic spine (principal); E78.5 Hyperlipidemia, unspecified; I10 Essential (primary) hypertension; Z86.79 Personal history of other diseases of the circulatory system; Z87.891 Personal history of nicotine dependence; Z79.02 Long term (current) use of antithrombotics/antiplatelets; Z79.811 Long term (current) use of aromatase inhibitors; Z79.899 Other long term (current) drug therapy